=== PATIENT | male | born 1955 | race Caucasian/White ===

== ENCOUNTER 2020-09-24 08:16 | Outpatient (CLI) | payer MEDICARE, OTHER, SELFPAY ==
--- NOTE | ~2020-09-24 | CT_ITS ---
EXAMINATION: CT abdomen wo con DATE: 09/24/2020 08:45 INDICATION: Right upper quadrant abdominal pain for 3 weeks. Abnormal laboratory results. TECHNIQUE: Computed tomography (CT) of the abdomen and pelvis was performed without intravenous contr ast. Automated exposure control and iterative reconstruction technique were employed. Exam dose: 957 .10 mGy-cm total exam DLP. COMPARISON: 12/15/2016 CT abdomen pelvis FINDINGS: Minimal left lower lobe infiltrate or atelectasis. Heart size is within normal range. No pericardial or pleural effusion. Small sliding hiatal hernia. Status post cholecystectomy. Calcified hepatic and splenic granulomas consistent with old granulomatous disease. No hepatic, splenic, pancreatic, and adrenal or renal space-occupying mass lesion is detected. Several punctate nonobstructing right renal calculi are suggested. Nonobstructing 2.5 mm and approximately 7 mm lower pole left renal calculi. No hydroureteronephrosis. Normal caliber of the abdominal aorta. No intraperitoneal or retroperitoneal mass lesion or adenopath y. Normal appendix. There is diverticulosis of the colon; no CT evidence of diverticulitis is detected. Right anterior abdominal wall mesh repair. Degenerative changes of the thoracic and lumbar spine with particularly severe degenerative disc dise ase at L1-2, L3-4, L4-5 and L5-S1. IMPRESSION: Minimal left lower lobe infiltrate or atelectasis Small sliding hiatal hernia Status post cholecystectomy Nonobstructive mild bilateral nephrolithiasis Diverticulosis of the colon Reviewed, dictated and finalized at Location A. Reviewed, dictated and finalized at location A.
== END 2020-09-24 08:17 | disposition home or self-care (01) ==
PROVIDERS: PCP Internal Medicine; Visit Provider Internal Medicine
DX: K57.30 Diverticulosis of large intestine without perforation or abscess without bleeding (principal); N20.0 Calculus of kidney; K44.9 Diaphragmatic hernia without obstruction or gangrene; Z90.49 Acquired absence of other specified parts of digestive tract; R91.8 Other nonspecific abnormal finding of lung field
CPT/HCPCS: 74150

== ENCOUNTER → 2020-09-27 14:25 | Outpatient (CLI) | payer MEDICARE, OTHER, SELFPAY ==
--- NOTE | ~2020-09-27 | XR_ITS ---
XR abdomen/kub 1V 09/27/2020 14:40 Indication: Renal stones. Procedure: KUB Comparison: Comparison to multiple prior studies sequentially, with oldest reviewed study dated 10/30. Findings: Bowel gas pattern is nonobstructive. Moderate colonic fecal loading. There is left renal st one. There are coils in the right abdomen, likely from previous hernia repair. There are cholecystect roberto clips. Advanced spondylosis of the lumbar spine with dextroscoliosis. Impression: 1: Left nephrolithiasis. Reviewed, dictated and finalized at location A. Impression: 1: Left nephrolithiasis.
== END ==
PROVIDERS: PCP Internal Medicine; Visit Provider Nurse Practitioner Adult Health
DX: N20.0 Calculus of kidney (principal)
CPT/HCPCS: 74018

== ENCOUNTER 2020-10-02 10:05 | Outpatient (CLI) | payer MEDICARE, OTHER, SELFPAY ==
--- NOTE | 2020-10-02 10:09 | ECG_ITS ---
Measurements Intervals [place] Rate: 70 P: 8 CA: 170 QRS: 42 QRSD: 110 T: 37 QT: 357 QTc: 387 Interpretive Statements SINUS RHYTHM WITH SINUS ARRHYTHMIA BORDERLINE R WAVE PROGRESSION, ANTERIOR LEADS MINIMAL Q WAVES- INFERIOR LEADS BORDERLINE ECG Electronically Signed On 10-02-2020 12:18:39 CORNER FORMER by Martin Harper D.O.
[2020-10-02 10:58] LABS: INR 0.9; Prothrombin Time 12.9 Seconds (11.1-14.7)
[2020-10-02 10:59] LABS: Partial Thromboplastin Time 25.7 SECONDS (22.3-36.8)
== END 2020-10-02 10:06 | disposition home or self-care (01) ==
LOC: ANHSURGERY 10:09
PROVIDERS: PCP Internal Medicine; Visit Provider Urology
DX: N20.0 Calculus of kidney (principal); I10 Essential (primary) hypertension; Z01.818 Encounter for other preprocedural examination; R94.31 Abnormal electrocardiogram [ECG] [EKG]
CPT/HCPCS: 36415; 85610; 85730; 93005

== ENCOUNTER 2020-10-03 01:55 | Outpatient (CLI) | payer MEDICARE, OTHER, SELFPAY ==
[2020-10-03 22:35] LABS: SARS-CoV-2 RNA PCR Negative
== END 2020-10-03 01:56 | disposition home or self-care (01) ==
LOC: ANHCOVIDDT 01:56
PROVIDERS: PCP Internal Medicine; Visit Provider Urology
DX: Z01.812 Encounter for preprocedural laboratory examination (principal); Z20.828 Contact with and (suspected) exposure to other viral communicable diseases
CPT/HCPCS: 87635; C9803; U0003

== ENCOUNTER 2020-10-05 03:01 | Day surgery (SDC) | payer MEDICARE, OTHER, SELFPAY ==
[2020-10-01 11:04] VITALS: BMI 36.3
--- NOTE | 2020-10-04 12:38 | WPDANESEPPF ---
Anes - Initial Pre Proc Eval Procedure: Operation Date: 10/05/20 10:30 Proposed Procedures p Left Renal Extracorporeal Shock Wave Lithotripsy - Van Vizcaino MD Date/Time: 10/04/20 12:38 Surgeon: Van Vizcaino MD Pre Op Diagnosis: Left Renal Stone Patient Data Age: 64 Gender: M Height: 1.71 m Weight: 107.05 kg Allergies Allergy/AdvReac Type Severity Reaction Status Date / Time cat dander Allergy Unknown ITCHING/WATERY Verified 10/05/20 08:51 EYES mold Allergy Unknown ITCHING/WATERY Verified 10/05/20 08:51 EYES, ASTHMA SYMPTOMS Home Medications Medication Instructions Recorded Confirmed Type adalimumab [Humira] 40 mg SUBCUT WEEKLY 10/11/19 10/01/20 History atenolol 25 mg PO DAILY 10/11/19 10/01/20 History atorvastatin 40 mg PO DAILY 10/11/19 10/01/20 History cyclobenzaprine 10 mg PO HS PRN 10/11/19 10/01/20 History aspirin 81 mg tablet,delayed 81 mg PO DAILY 10/19/19 10/01/20 History release fluticasone furoate 27.5 1 spray NASAL DAILY 10/19/19 10/01/20 History mcg/actuation nasal spray,suspension albuterol sulfate 90 mcg/actuation 1 puff INHALATION Q4H PRN 04/17/20 10/01/20 History aerosol inhaler insulin glargine U-300 conc 300 20 unit SUB-Q DAILY #6 ml 04/19/20 10/01/20 Rx unit/mL (3 mL) subcutaneous pen dutasteride 0.5 mg capsule 0.5 mg PO DAILY #90 cap 06/08/20 10/01/20 Rx metformin 1,000 mg tablet 1,000 mg PO BID #180 tablet 06/08/20 10/01/20 Rx pantoprazole 40 mg tablet,delayed 40 mg PO BID #180 tablet 07/02/20 10/01/20 Rx release tramadol 50 mg tablet 50 mg PO Q6H PRN #60 tablet 07/20/20 10/01/20 Rx blood sugar diagnostic #300 each 08/01/20 Rx lancets 33 gauge #300 each 08/01/20 Rx quinapril 40 mg tablet 40 mg PO DAILY #90 tablet 08/10/20 10/01/20 Rx semaglutide 7 mg tablet 7 mg PO DAILY #90 tablet 09/12/20 10/01/20 Rx pen needle, diabetic 31 gauge x #300 each 09/17/20 Rx 04/14 cholecalciferol (vitamin D3) 125 mcg PO DAILY 10/01/20 10/01/20 History [Vitamin D3] dapagliflozin [Farxiga] 10 mg PO DAILY 10/01/20 10/01/20 History fluticasone furoate-vilanterol 1 inh INHALATION DAILY 10/01/20 10/01/20 History [Breo Ellipta] folic acid 1 mg PO DAILY 10/01/20 10/01/20 History insulin lispro [Humalog KwikPen 15 unit SUBCUT TIDWM 10/01/20 10/01/20 History Insulin] tamsulosin 0.4 mg PO DAILY 10/01/20 10/01/20 History zinc 50 mg PO DAILY 10/01/20 10/01/20 History hydrochlorothiazide 12.5 mg capsule See Rx Instructions .ROUTE 10/04/20 Rx .COMPLEX #90 cap Patient hx anesthesia problems: none Family hx anesthesia problems: none PMFSH Past Medical History Medical History (Updated 10/04/20 @ 12:39 by Akbar Fierro MD) Asthma BPH (benign prostatic hyperplasia) CAD (coronary artery disease) Diabetes Dyslipidemia associated with type 2 diabetes mellitus Elevated LFTs Essential hypertension GERD (gastroesophageal reflux disease) Hyperlipidemia, unspecified Hypertension Obesity Osteoarthritis Psoriatic arthritis Type 2 diabetes mellitus without complication, without long-term current use of insulin Surgical History Surgical History H/O cardiac catheterization H/O inguinal hernia repair History of cholecystectomy History of facial fracture repair 1976 History of heart artery stent Status post club foot correction at x2 Family History Family History Father Hypertension, Onset Age: 80 Cerebrovascular accident, Onset Age: 80 Mother Family history of Alzheimer's disease, Onset Age: 92 Sibling Acute myocardial infarction Social History Social History Smoking status: Never smoker Alcohol intake: never Substance use: never Spiritual care concerns: No Anes - Eval Final PreProcedure Day of Procedure
[2020-10-05] VITALS (7 sets, daily range): BP systolic 111–144; BP diastolic 70–76; PULSE 53–64; RESP 10–18; TEMP 36.2–36.4; O2SAT 97–100
--- NOTE | ~2020-10-05 | XR_ITS ---
EXAMINATION: XR abdomen/kub 1V INDICATION: Nephrolithiasis TECHNIQUE: Supine views of the abdomen were obtained on 2 radiographs. COMPARISON: 09/27/2020, 09/24/2020 FINDINGS: Bowel contents project over the kidneys limiting sensitivity for renal stones. A 7 mm stone projects in the left kidney lower pole. There is also a 2 mm stone projecting in the left kidney low er pole. A moderate volume of colonic stool is present. There is severe lumbar spondylosis. There is mild osteoarthritis of the hips. Calcified atherosclerosis is noted. There are changes of mesh ventra l hernia repair in the right abdomen. Cholecystectomy clips are noted. IMPRESSION: 1. Left nephrolithiasis. Reviewed, dictated and finalized at location A. INUOUS PILLOWCASE CUTTER IMPRESSION: 1. Left nephrolithiasis.
--- NOTE | 2020-10-05 06:33 | WPDHPUPDATE1 ---
History and Physical Update Update Date/Time: 10/05/20 06:33 History and Physical has been reviewed, including an updated exam of the patient. There are NO changes in the patient's condition. Risks, benefits, and alternatives have been discussed and questions answered. Patient agrees to proceed with procedure.
[2020-10-05] MEDS: LACTATED RINGERS 1,000 ML 30 ML IV CONT (09:15)
[2020-10-05 09:46] LABS: Glucose Point of Care 148 (65-105)
[2020-10-05] MEDS: ceFAZolin 2 GM/D5W 50 ML 2 GM/50 ML BAG IVPB (10:33)
--- NOTE | 2020-10-05 10:53 | PM.PROC ---
Procedure Note - Detailed Date of procedure: 10/05/20 Pre-op diagnosis: Left Renal Stone Post-op diagnosis: same Procedure performed: Left ESWL Description of procedure: The patient was brought to the operative suite where he was placed in the supine position on the Dornier lithotripsy table. The focal point of the lithotripter was placed at a 7mm left lower pole renal calculus. A total of 2500 shocks were delivered at a power setting of 4. There appeared to be good fragmentation of the stone. The patient tolerated the procedure well and was taken to the recovery room in good condition. Anesthesia: GLMA Surgeon: Van Vizcaino MD Drains: No Packing: No Pathology: none sent Complications: No immediate complications Condition: stable Disposition: PACU
== END 2020-10-05 12:49 | disposition home or self-care (01) ==
PROVIDERS: PCP Internal Medicine; Visit Provider Urology
PROC: (CPT 50590; principal; 2020-10-05 10:30)
DX: N20.0 Calculus of kidney (principal); I10 Essential (primary) hypertension; E11.9 Type 2 diabetes mellitus without complications; Z79.4 Long term (current) use of insulin; I25.10 Atherosclerotic heart disease of native coronary artery without angina pectoris; Z95.5 Presence of coronary angioplasty implant and graft; E78.5 Hyperlipidemia, unspecified; J45.909 Unspecified asthma, uncomplicated; K21.9 Gastro-esophageal reflux disease without esophagitis; N40.0 Benign prostatic hyperplasia without lower urinary tract symptoms; E66.9 Obesity, unspecified; Z68.35 Body mass index [BMI] 35.0-35.9, adult; Z79.51 Long term (current) use of inhaled steroids; Z79.82 Long term (current) use of aspirin; Z79.899 Other long term (current) drug therapy
CPT/HCPCS: 50590; 74018; J0690; J2405; J2704; J3010; J7120

== ENCOUNTER 2020-11-12 08:30 | Outpatient (CLI) | payer MEDICARE, OTHER, SELFPAY ==
--- NOTE | ~2020-11-12 | US_ITS ---
US abdomen complete EXAMINATION: US Abdomen Complete INDICATION: Abnormal liver function tests. PROCEDURE: Realtime High Resolution abdomen ultrasound. COMPARISON: Ultrasound dated 12/15/2016 FINDINGS: Gallbladder is surgically absent. Common bile duct measures 3 mm. Liver echotexture is increased, consistent with fatty infiltration.. Pancreas within normal limits. Pancreatic tail is obscured by bowel gas. Spleen is unremarkeable. Renal echotexture is within norm al limits bilaterally without hydronephrosis, contour deforming mass. There is an echogenic focus in the lower pole of the left kidney measuring 9 mm, consistent with nonobstructing renal stone. Right k idney measures 10.1 cm. Left kidney measures 10.6 cm. Visualized aspects of the aorta and IVC are within normal limits. Portal vein is patent. No sonograph ic Gill's sign indicated by the technologist. IMPRESSION: 1: Hepatic steatosis. 2: Echogenic 9 mm focus in the lower pole of the left kidney, consistent with a renal stone. No hydro nephrosis. 3: Status post cholecystectomy. Reviewed, dictated and finalized at location A. NG MACHINE SET UP OPERATOR TOOL IMPRESSION: 1: Hepatic steatosis. 2: Echogenic 9 mm focus in the lower pole of the left kidney, consistent with a renal stone. No hydronephrosis. 3: Status post cholecystectomy.
== END 2020-11-12 08:31 | disposition home or self-care (01) ==
PROVIDERS: PCP Internal Medicine; Visit Provider Internal Medicine
DX: R79.89 Other specified abnormal findings of blood chemistry (principal); K76.0 Fatty (change of) liver, not elsewhere classified; Z90.49 Acquired absence of other specified parts of digestive tract
CPT/HCPCS: 76700

== ENCOUNTER → 2021-01-21 09:14 | Outpatient (CLI) | payer MEDICARE, OTHER, SELFPAY ==
--- NOTE | ~2021-01-21 | XR_ITS ---
EXAMINATION: XR chest 2V EXAM DATE: 01/21/2021 09:28 INDICATION: Cough. TECHNIQUE: Frontal and lateral projections of the chest obtained and reviewed. Comparison is made to prior examination from 04/07/2017. FINDINGS: The lungs are clear. There are no pleural effusions. The cardiomediastinal silhouette is within normal limits. There is no pneumothorax suspected. The bones and soft tissues are unremarkab le. There are cholecystectomy clips. IMPRESSION: No acute cardiopulmonary findings. Reviewed, dictated and finalized at location B. LD INSTALLER
== END ==
PROVIDERS: PCP Internal Medicine; Visit Provider Internal Medicine
DX: R05 Cough (principal)
CPT/HCPCS: 71046

== ENCOUNTER → 2021-01-22 08:06 | Outpatient (CLI) | payer MEDICARE, OTHER, SELFPAY ==
[2021-01-22 20:35] LABS: SARS-CoV-2 RNA PCR Negative
== END ==
PROVIDERS: PCP Internal Medicine; Visit Provider Internal Medicine
DX: R05 Cough (principal); Z20.822 Contact with and (suspected) exposure to COVID-19
CPT/HCPCS: C9803; U0003; U0005

== ENCOUNTER 2021-01-31 15:16 | Outpatient (CLI) | payer MEDICARE, OTHER, SELFPAY | END 2021-01-31 15:17 | disposition home or self-care (01) | LOC: ANHCOVIDVC 15:16 | PROVIDERS: PCP Internal Medicine | DX: Z23 Encounter for immunization (principal) | CPT/HCPCS: 0001A; 91300 ==

== ENCOUNTER 2021-02-21 15:14 | Outpatient (CLI) | payer MEDICARE, OTHER, SELFPAY | END 2021-02-21 15:15 | disposition home or self-care (01) | LOC: ANHCOVIDVC 15:14 | PROVIDERS: PCP Internal Medicine | DX: Z23 Encounter for immunization (principal) | CPT/HCPCS: 0002A; 91300 ==

== ENCOUNTER → 2021-04-17 09:17 | Outpatient (CLI) | payer MEDICARE, OTHER, SELFPAY ==
--- NOTE | ~2021-04-17 | XR_ITS ---
EXAMINATION: XR abdomen/kub 1V EXAM DATE: 04/17/2021 09:41 INDICATION: Bilateral renal stones . TECHNIQUE: Frontal projection of the upper abdomen, frontal projection lower abdomen/pelvis for inter pretation. Comparison is made to prior examination from 10/05/2020. FINDINGS: Moderate to large amount of colonic stool is obscuring renal contours. There is right-side d abdominal wall mesh with multiple anchors. There are cholecystectomy clips. Mild to moderate lumbar scoliosis and moderate to severe disc disease. No small bowel dilation. IMPRESSION: Moderate to large amount of colonic stool. Reviewed, dictated and finalized at location A.
== END ==
PROVIDERS: PCP Internal Medicine; Visit Provider Urology
DX: N20.0 Calculus of kidney (principal)
CPT/HCPCS: 74018

== ENCOUNTER → 2021-04-24 07:44 | Outpatient (CLI) | payer MEDICARE, OTHER, SELFPAY ==
--- NOTE | ~2021-04-24 | XR_ITS ---
EXAMINATION: XR hip BI 2V w AP pelvis DATE: 04/24/2021 08:05 INDICATION: Low back and bilateral hip pain TECHNIQUE: AP view the pelvis and two views of each hip were obtained. COMPARISON: 04/17/2021 FINDINGS: There is mild osteoarthritis of the hips. Bone alignment is normal. There is no fracture. S evere spondylosis is present in the visualized lumbar spine. Calcified atherosclerosis. IMPRESSION: 1. Mild osteoarthritis of the hips. Reviewed, dictated and finalized at location A.
== END ==
PROVIDERS: PCP Internal Medicine; Visit Provider Internal Medicine
DX: M54.5 Low back pain (principal); M16.0 Bilateral primary osteoarthritis of hip
CPT/HCPCS: 73521

== ENCOUNTER → 2022-01-13 11:10 | Outpatient (CLI) | payer MEDICARE, OTHER, SELFPAY ==
--- NOTE | ~2022-01-13 | XR_ITS ---
EXAMINATION: XR shoulder RT min 2V DATE: 01/13/2022 11:29 INDICATION: Pain in unspecified shoulder. TECHNIQUE: 4 views of right shoulder were obtained. COMPARISON: None. FINDINGS: Bone alignment is normal. No fracture. There is mild osteoarthritis of glenohumeral joint a nd moderate osteoarthritis of acromioclavicular joint. IMPRESSION: 1. Polyarticular osteoarthritis. Reviewed, dictated and finalized at location A. ACTOR
== END ==
PROVIDERS: PCP Internal Medicine; Visit Provider Internal Medicine
DX: M19.011 Primary osteoarthritis, right shoulder (principal)
CPT/HCPCS: 73030

== ENCOUNTER 2022-04-14 10:41 | Outpatient (CLI) | payer MEDICARE, OTHER, SELFPAY ==
--- NOTE | ~2022-04-14 | MR_ITS ---
EXAMINATION: MR shoulder RT wo con DATE: 04/14/2022 11:33 INDICATION: Complete rotator cuff tear at the right shoulder with right shoulder pain and decreased r hoa of motion TECHNIQUE: Magnetic resonance imaging (MRI) of the right shoulder was performed without intravenous c ontrast. Sequences included axial PD-weighted FS FSE, coronal oblique PD-weighted FS FSE, coronal obl ique T2-weighted FS FSE, sagittal PD-weighted FS FSE, and sagittal T1-weighted SE. COMPARISON: None. FINDINGS: Coracoacromial arch: The acromion undersurface is curved in morphology (type II). Small anterior subacromial spur at the a cromial insertion of the otherwise normal coracoacromial ligament. Mild to moderate acromioclavicular osteoarthritis. Rotator cuff: Mild to moderate supraspinatus tendinopathy with complete full-thickness tear along the critical zone of the tendon approximately 1-1.5 cm from the superior facet footplate. The medial tear margin is re tracted 2.2 cm medially located midway between the level of the apex of the humeral head and the late ral rim of the glenoid. The tear measures approximately 2.5 cm AP along its lateral margin approximat adriano 3 cm AP at the level of the apex of the humeral head. Mild tendinopathy without discrete tear of the more posterior infraspinatus tendon. The teres minor tendon is normal. Mild subscapularis tendino cinthia without discrete tear. There is mild atrophy of the supraspinatus and infraspinatus muscle escalera ies. Biceps tendon, glenoid labrum and glenohumeral cartilage: Full-thickness tear of the intra-articular long head biceps tendon with distal tear margin retracted below the inferior margin of the [id number]. Mild glenohumeral osteoarthritis with partial thickne ss cartilage loss with smooth chondral surface along the cephalad third of the glenoid and small [place] inal osteophytes along the anterosuperior rim of the glenoid. Additional mild partial thickness carti jose m loss along the inferomedial aspect of the humeral head. There appears be a partial-thickness cho ndral fissuring extending across the caudal third of the glenoid. Mild amorphous increased signal at the inferior, posterior and superior glenoid labrum likely related to degeneration without a well-def ined linear tear. Fluid: Small glenohumeral joint effusion which extends to the full-thickness rotator cuff tear to communicat e with a small amount of fluid in the subacromial/subdeltoid bursa. No loose osteochondral bodies. Bones: Normal marrow signal with no edema, fracture or pathologic marrow replacing process. IMPRESSION: 1. Mild glenohumeral osteoarthritis with degeneration of the superior, posterior and inferior glenoid labrum. 2. Mild to moderate supraspinatus tendinopathy with full-thickness tear at the critical zone of the t endon. 3. Complete tear and distal retraction of the intra-articular long head biceps tendon. 4. Mild to moderate acromioclavicular osteoarthritis. Reviewed, dictated and finalized at location A. IMPRESSION: 1. Mild glenohumeral osteoarthritis with degeneration of the superior, posterio r and inferior glenoid labrum. 2. Mild to moderate supraspinatus tendinopathy with full-thickness tear at the critical zone of the tendon. 3. Complete tear and distal retraction of the intra-articular long head biceps tendon. 4. Mild to moderate acromioclavicular osteoarthritis.
== END 2022-04-14 10:42 | disposition home or self-care (01) ==
PROVIDERS: PCP Internal Medicine; Visit Provider Physician Assistant Surgical
DX: M75.121 Complete rotator cuff tear or rupture of right shoulder, not specified as traumatic (principal); M19.011 Primary osteoarthritis, right shoulder; M75.101 Unspecified rotator cuff tear or rupture of right shoulder, not specified as traumatic
CPT/HCPCS: 73221

== ENCOUNTER → 2022-05-14 14:48 | Outpatient (CLI) | payer MEDICARE, OTHER, SELFPAY ==
--- NOTE | ~2022-05-14 | XR_ITS ---
EXAM: XR abdomen/kub 1V DATE: 05/14/2022 15:25 HISTORY: Bilateral renal stones . COMPARISON: 04/17/2021. FINDINGS: Clear lung bases. Normal bowel gas pattern. No organomegaly. No abnormal abdominal calcifi cation. Cholecystectomy clips. Right upper abdominal hernia mesh anchors. Vascular calcifications. IMPRESSION: No radiographic evidence of urolithiasis. Reviewed, dictated and finalized at location K.
== END ==
PROVIDERS: PCP Internal Medicine; Visit Provider Urology
DX: N20.0 Calculus of kidney (principal)
CPT/HCPCS: 74018

== ENCOUNTER 2022-11-05 10:02 | Outpatient (CLI) | payer MEDICARE, OTHER, SELFPAY ==
--- NOTE | 2022-11-05 10:49 | ECG_ITS ---
Measurements Intervals [place] Rate: 57 P: 8 [place]: 167 QRS: 19 QRSD: 94 T: 24 QT: 397 QTc: 388 Interpretive Statements SINUS BRADYCARDIA POSSIBLE INFERIOR MYOCARDIAL INFARCTION [30 ms Q WAVE IN II/aVF], PROBABLY OLD COMPARED TO ECG 10/02/2020 10:45:08 SINUS BRADYCARDIA NOW PRESENT Electronically Signed On 11-05-2022 15:08:53 CYBER CRIME INVESTIGATOR by Rommel Mendez M.D.
[2022-11-05 11:13] LABS: Basophils Absolute Auto 0.1 K/mm3 (0.0-0.1); Eosinophils Absolute Auto 0.3 K/mm3 (0-0.3); Eosinophils Percent Auto 4.8 % (0-4.4); Hematocrit 45.2 % (42.0-52.0); Hemoglobin 14.9 g/dL (14.0-18.0); Immature Granulocyte Absolute 0.03 K/mm3 (0.00-0.031); Immature Granulocyte Percent A 0.4 % (0-0.5); Lymphocytes Absolute Auto 1.69 K/mm3 (0.9-3.2); Mean Corpuscular Volume 90.9 fl (80-100); Mean Platelet Volume 10.3 fl (7.4-10.4); Monocytes Absolute Auto 0.7 K/mm3 (0.1-0.6); Monocytes Percent Auto 10.4 % (2.6-8.5); Neutrophils Absolute Auto 4.2 K/mm3 (1.3-6.7); Neutrophils Percent Auto 59.4 % (45.5-73.1); Platelet Count Result 200 k/mm3 (150-375); Red Blood Count 4.97 M/mm3 (4.6-6.20); Red Cell Distribution Width 14.6 % (11.5-14.5); White Blood Count 7.1 K/mm3 (4.5-10.0)
[2022-11-05 11:21] LABS: Anion Gap 9 mmol/L (8-16); Blood Urea Nitrogen 36 mg/dL (9-20); Calcium 9.3 mg/dL (8.4-10.2); Carbon Dioxide 25 mmol/L (22-30); Chloride 101 mmol/L (98-107); Estimated Glomerular Filt Rate 60; Glucose 113 mg/dL (65-110); Potassium 4.4 mmol/L (3.4-5.0); Sodium 135 mmol/L (137-145)
== END 2022-11-05 10:03 | disposition home or self-care (01) ==
PROVIDERS: Anesthesiology; PCP Physician Assistant; Visit Provider Orthopaedic Surgery
DX: M75.121 Complete rotator cuff tear or rupture of right shoulder, not specified as traumatic (principal); Z01.818 Encounter for other preprocedural examination; R00.1 Bradycardia, unspecified
CPT/HCPCS: 36415; 80048; 85025; 87081; 93005

== ENCOUNTER 2022-12-15 01:19 | Day surgery (SDC) | payer MEDICARE, OTHER, SELFPAY ==
--- NOTE | 2022-11-05 09:33 | PC.NURSE ---
PRE-OP INSTRUCTIONS, PLEASE READ CAREFULLY Report to the Outpatient Waiting Room, entrance under the green pavilion located off [facility], at time _0600_ on date _12/04/22_. Planned Procedure Time: _0730_. PACK A SMALL OVERNIGHT BAG AND LEAVE IN THE CAR Time changes happen often and if your time is changed the preop area will call you the afternoon before. - You and your visitor will be asked to self-screen and do not enter if you have any COVID symptoms. - Only one visitor is requested with a max of two and NO children visitors are allowed at this time. - The patient visitor may be requested to leave or wait in car when not with patient due to distancing restrictions. - A mask is optional within the hospital. -VISITING HOURS 8AM-8PM Patients may have clear liquids (water, carbonated beverages, clear teas, apple juice) until 3 hours prior to surgery (0430 AM) with a maximum of 20 ounces. - No food from midnight until time of surgery Take the following medications with a SIP of water the morning of surgery: _ATENOLOL, BREO INHALER, NASAL SPAY, - FLEXERIL, TRAMADOL IF NEEDED_ Medications to discontinue - _ASPIRIN, HUMIRA PER DR. MAE'S INSTRUCTIONS, Date to take last dose__11/27/22__ Please no deodorant, or body powder the day of surgery. No jewelry (including any body piercings) or valuables the day of surgery, leave them at home. Please take a shower or bath the night before, or the morning of, surgery with an antibacterial soap. Wear comfortable, loose fitting clothing. - Jewelry must be removed prior to entering the operating room. Rings and piercings that are not removed may be cut off. - The hospital will not accept responsibility for valuables. - Please leave all valuables, including medications, at home the day of surgery. If you are going home after surgery, a licensed delivery driver assistant must drive you home. - NO public transportation without another adult if you receive anesthesia. - We recommend that an adult stay with you for 24 hours following discharge. - We also recommend that you do not drive, make important decision, drink alcoholic beverages, or take any drugs that were not prescribed by your health care provider for at least 24 hours after your discharge time. Follow any additional instructions given to you from your surgeon. If you or anyone in your household have experienced Covid symptoms in the past week, please notify your surgeon or the nurse liaison at the phone number below for possible testing. Instructions given to _PATIENT_and asked if any additional questions and then verbalized understanding. Patient advised to call surgeon office or pre surgery nurse liaison [phone] if any additional questions.
[2022-11-05 10:26] VITALS: BMI 32.1
--- NOTE | 2022-12-03 12:50 | WPDANESEPPF ---
Anes - Initial Pre Proc Eval Procedure: Operation Date: 12/04/22 07:30 Proposed Procedures p Right Reverse Total Shoulder Arthroplasty - King Gabriel MD Date/Time: 12/03/22 12:50 Surgeon: King Gabriel MD Pre Op Diagnosis: complete right rotator cuff tear Patient Data Age: 67 Gender: M Height: 1.7 m Weight: 93.1 kg Allergies Allergy/AdvReac Type Severity Reaction Status Date / Time cat dander Allergy Unknown ITCHING/WATERY Verified 11/05/22 12:20 EYES mold Allergy Unknown ITCHING/WATERY Verified 11/05/22 12:20 EYES, ASTHMA SYMPTOMS Home Medications Medication Instructions Recorded Confirmed Type atenolol 25 mg tablet 25 mg PO DAILY 10/11/19 11/05/22 History atorvastatin 40 mg tablet 40 mg PO DAILY 10/11/19 11/05/22 History aspirin 81 mg tablet,delayed 81 mg PO DAILY 10/19/19 11/05/22 History release (Adult Aspirin Regimen) fluticasone furoate 27.5 1 spray intranasal DAILY 10/19/19 11/05/22 History mcg/actuation nasal spray,suspension cholecalciferol (vitamin D3) 125 125 mcg PO DAILY 10/01/20 11/05/22 History mcg (5,000 unit) tablet (Vitamin D3) zinc 50 mg tablet 50 mg PO DAILY 10/01/20 11/05/22 History blood sugar diagnostic See Rx Instructions .Route 12/13/21 11/05/22 Rx .COMPLEX #400 ea cyclobenzaprine 10 mg tablet 10 mg PO HS PRN Spasms #30 tabs 06/18/22 11/05/22 Rx insulin lispro 100 unit/mL 5 unit (0.05 mL) subcut TID #15 mL 06/18/22 11/05/22 Rx subcutaneous pen (Humalog KwikPen (U-100) Insulin) tramadol 50 mg tablet 50 mg PO Q6H PRN pain #60 tabs 06/19/22 11/05/22 Rx allopurinol 300 mg tablet 150 mg PO DAILY 07/01/22 11/05/22 History finasteride 5 mg tablet 5 mg PO DAILY 07/01/22 11/05/22 History magnesium 200 mg tablet 400 mg PO DAILY 07/01/22 11/05/22 History Breo Ellipta 100 mcg-25 mcg/dose See Rx Instructions .Route 07/14/22 11/05/22 Rx powder for inhalation (fluticasone .COMPLEX #60 ea furoate-vilanterol) dutasteride 0.5 mg capsule 0.5 mg PO DAILY #90 caps 07/28/22 11/05/22 Rx empagliflozin 10 mg tablet 10 mg PO DAILY #90 tabs 07/28/22 11/05/22 Rx (Jardiance) insulin glargine U-300 conc 300 40 unit (0.1333 mL) subcut DAILY 09/11/22 11/05/22 Rx unit/mL (3 mL) subcutaneous pen #12 mL (Toujeo Max U-300 SoloStar) pen needle, diabetic 31 gauge x #300 ea 10/13/22 11/05/22 Rx 5/16 (BD Ultra-Fine Short Pen Needle) semaglutide 14 mg tablet (Rybelsus) 14 mg PO DAILY #30 tabs 11/11/22 Rx metformin 1,000 mg tablet 1,000 mg PO BID #180 tabs 11/12/22 Rx lisinopril 20 1 tablet PO DAILY #90 tabs 11/14/22 Rx mg-hydrochlorothiazide 12.5 mg tablet blood sugar diagnostic (OneTouch #200 ea 12/02/22 Rx Ultra Test strips) blood sugar diagnostic (OneTouch 12/02/22 History Verio test strips) lancets 33 gauge (OneTouch Delica #200 ea 12/02/22 Rx Lancets) pantoprazole 40 mg tablet,delayed 40 mg PO BID #180 tabs 12/02/22 Rx release ECG: Date of Service: 11/05/22 Procedure(s): CA 12 lead EKG Accession Number(s): [id number] cc: ~ ? Measurements Intervals? [place]? Rate: ? 57 ? P:? 8 TN: ? 167? QRS:? 19 QRSD: ? 94 ? T:? 24 QT: ? 397? QTc:? 388? Interpretive Statements SINUS BRADYCARDIA POSSIBLE INFERIOR MYOCARDIAL INFARCTION [30 ms Q WAVE IN II/aVF], PROBABLY OLD COMPARED TO ECG 10/02/2020 10:45:08 SINUS BRADYCARDIA NOW PRESENT Electronically Signed On 11-05-2022 15:08:53 OPERATOR CAVITY PUMP by Rommel Mendez M.D. Results Review: All pre-operative results and documents have been reviewed as part of the pre-operative evaluation. [facility] Past Medical History Medical History (Updated 12/03/22 @ 12:51 by Akbar Fierro MD) A
--- NOTE | 2022-12-03 12:54 | WPDANESPNB ---
Anes - Peripheral Nerve Block Date/Time: 12/03/22 12:54 I have discussed with the patient/family/POA the placement of a peripheral nerve block for post-operative pain management, including associated risks, benefits, complications, and side effects. Alternative methods of post-operative analgesia were detailed. Questions were solicited and answers provided to the satisfaction of the patient/family/POA. Time-Out: A pre-procedural Time-Out was completed immediately before starting the procedure and confirmed: Patient Identification, Site, Procedure, Patient Position and the Availability of Requisite Equipment. Clinical Indications: Acute post-operative pain management requested by the operative surgeon. Nerve Block Insertion Note Needle: 22 gauge, stimulating, insulated echogenic needle.
[2022-12-11 10:47] VITALS: BMI 32.1
--- NOTE | 2022-12-11 10:54 | PC.NURSE ---
Report to the Outpatient Waiting Room, entrance under the green pavilion located off [facility], at time ___0600____ on date __12/15/21 . Planned Procedure Time: _0730_. Time changes happen often and if your time is changed the preop area will call you the afternoon before. - You and your visitor will be asked to self-screen and do not enter if you have any COVID symptoms. - Only one visitor is requested with a max of two and NO children visitors are allowed at this time. - The patient visitor may be requested to leave or wait in car when not with patient due to distancing restrictions. - A mask is optional within the hospital. Patients may have clear liquids (water, carbonated beverages, clear teas, apple juice) until 3 hours prior to surgery with a maximum of 20 ounces. - No food from midnight until time of surgery - Infants may have breast milk until 4 hours before surgery, formula 6 hours prior to surgery. - Children will be allowed to drink immediately following surgery. If applicable, please bring a bottle or sippy cup to assist with drinking. Juice, water, soda, and popsicles are readily available. For infants on formula, please bring formula the day of surgery. Pacifiers are allowed. Take the following medications with a SIP of water the morning of surgery: _ATENOLOL, BREO INHALER, NASAL SPAY, - FLEXERIL, TRAMADOL IF NEEDED_ Medications to discontinue per physician _STATES LAST DOSE ASPIRIN 11/27/22 AND LAST DOSE OF HUMIRA 11/28/22__ Date to take last dose Please no make-up, nail croatian, hairspray, perfume, deodorant, or body powder the day of surgery. No jewelry (including any body piercings) or valuables the day of surgery, leave them at home. Please take a shower or bath the night before, or the morning of, surgery with an antibacterial soap. Wear comfortable, loose fitting clothing. Children are encouraged to wear pajamas. - Jewelry must be removed prior to entering the operating room. Rings and piercings that are not removed may be cut off. - The hospital will not accept responsibility for valuables. - Please leave all valuables, including medications, at home the day of surgery. If you are going home after surgery, a licensed route delivery driver must drive you home. - NO public transportation without another adult if you receive anesthesia. - We recommend that an adult stay with you for 24 hours following discharge. - We also recommend that you do not drive, make important decision, drink alcoholic beverages, or take any drugs that were not prescribed by your health care provider for at least 24 hours after your discharge time. For Pediatric surgeries, we recommend two adults accompany the child home. Follow any additional instructions given to you from your surgeon. If you or anyone in your household have experienced Covid symptoms in the past week, please notify your surgeon or the nurse liaison at the phone number below for possible testing. Telephone instructions given to PATIENT and asked if any additional questions and then verbalized understanding. Patient advised to call surgeon office or pre surgery nurse liaison [phone] if any additional questions.
[2022-12-15] VITALS (13 sets, daily range): BP systolic 101–144; BP diastolic 54–97; PULSE 51–65; RESP 14–20; TEMP 36.1–36.8; O2SAT 92–99
--- NOTE | ~2022-12-15 | XR_ITS ---
EXAMINATION: XR shoulder RT min 2V DATE: 12/15/2022 10:31 INDICATION: Right shoulder arthroplasty TECHNIQUE: 2 views right shoulder FINDINGS: There is a right total shoulder arthroplasty in expected position. Subcutaneous gas with s oft tissue swelling are consistent with recent surgery. IMPRESSION: 1. Recent right total shoulder arthroplasty. Reviewed, dictated and finalized at location A. SPRING DEVELOPER
--- NOTE | 2022-12-15 06:42 | WPDANESEPPF ---
Anes - Initial Pre Proc Eval Procedure: Operation Date: 12/15/22 07:30 Proposed Procedures p Right Reverse Total Shoulder Arthroplasty - King Gabriel MD Date/Time: 12/15/22 06:42 Surgeon: King Gabriel MD Pre Op Diagnosis: complete right rotator cuff tear Patient Data Age: 67 Gender: M Height: 1.7 m Weight: 93.1 kg Allergies Allergy/AdvReac Type Severity Reaction Status Date / Time cat dander Allergy Unknown ITCHING/WATERY Verified 12/15/22 06:25 EYES mold Allergy Unknown ITCHING/WATERY Verified 12/15/22 06:25 EYES, ASTHMA SYMPTOMS Home Medications Medication Instructions Recorded Confirmed Type atenolol 25 mg tablet 25 mg PO DAILY 10/11/19 12/15/22 History atorvastatin 40 mg tablet 40 mg PO DAILY 10/11/19 12/15/22 History aspirin 81 mg tablet,delayed 81 mg PO DAILY 10/19/19 12/15/22 History release (Adult Aspirin Regimen) fluticasone furoate 27.5 1 spray intranasal DAILY 10/19/19 12/15/22 History mcg/actuation nasal spray,suspension cholecalciferol (vitamin D3) 125 125 mcg PO DAILY 10/01/20 12/15/22 History mcg (5,000 unit) tablet (Vitamin D3) zinc 50 mg tablet 50 mg PO DAILY 10/01/20 12/15/22 History blood sugar diagnostic See Rx Instructions .Route 12/13/21 12/11/22 Rx .COMPLEX #400 ea cyclobenzaprine 10 mg tablet 10 mg PO HS PRN Spasms #30 tabs 06/18/22 12/15/22 Rx insulin lispro 100 unit/mL 5 unit (0.05 mL) subcut TID #15 mL 06/18/22 12/15/22 Rx subcutaneous pen (Humalog KwikPen (U-100) Insulin) allopurinol 300 mg tablet 150 mg PO DAILY 07/01/22 12/15/22 History finasteride 5 mg tablet 5 mg PO DAILY 07/01/22 12/15/22 History magnesium 200 mg tablet 400 mg PO DAILY 07/01/22 12/15/22 History Breo Ellipta 100 mcg-25 mcg/dose See Rx Instructions .Route 07/14/22 12/15/22 Rx powder for inhalation (fluticasone .COMPLEX #60 ea furoate-vilanterol) dutasteride 0.5 mg capsule 0.5 mg PO DAILY #90 caps 07/28/22 12/15/22 Rx empagliflozin 10 mg tablet 10 mg PO DAILY #90 tabs 07/28/22 12/15/22 Rx (Jardiance) insulin glargine U-300 conc 300 40 unit (0.1333 mL) subcut DAILY 09/11/22 12/15/22 Rx unit/mL (3 mL) subcutaneous pen #12 mL (Toujeo Max U-300 SoloStar) pen needle, diabetic 31 gauge x #300 ea 10/13/22 12/11/22 Rx 5/16 (BD Ultra-Fine Short Pen Needle) semaglutide 14 mg tablet (Rybelsus) 14 mg PO DAILY #30 tabs 11/11/22 12/15/22 Rx metformin 1,000 mg tablet 1,000 mg PO BID #180 tabs 11/12/22 12/15/22 Rx lisinopril 20 1 tablet PO DAILY #90 tabs 11/14/22 12/15/22 Rx mg-hydrochlorothiazide 12.5 mg tablet blood sugar diagnostic (OneTouch 12/02/22 12/11/22 History Verio test strips) pantoprazole 40 mg tablet,delayed 40 mg PO BID #180 tabs 12/02/22 12/15/22 Rx release blood sugar diagnostic (OneTouch #200 ea 12/04/22 12/11/22 Rx Ultra Test strips) lancets 33 gauge (OneTouch Delica #200 ea 12/04/22 12/11/22 Rx Lancets) tramadol 50 mg tablet 50 mg PO Q6H PRN pain #60 tabs 12/08/22 12/15/22 Rx Humira(CF) Pen 0.5 mg subcut 2XW 12/15/22 12/15/22 History Patient hx anesthesia problems: none Family hx anesthesia problems: none Results Review: All pre-operative results and documents have been reviewed as part of the pre-operative evaluation. [facility] Past Medical History Medical History (Updated 12/03/22 @ 12:51 by Akbar Fierro MD) Asthma BPH (benign prostatic hyperplasia) BPH associated with nocturia CAD (coronary artery disease) COVID-19 vaccine series completed Diabetes Dyslipidemia associated with type 2 diabetes mellitus Elevated LFTs Essential hypertension GERD (gastroesophageal reflux disease) History of stress test 2009 2013 Hyperlipidemia, unspecified Hypertension Obesity Osteoarthritis Psoriatic arthritis Psoriatic arthritis Rotator cuff arthropathy of right shoulder Type 2 diabetes mellitus without complication, without long-term current use of insulin Uric acid kidney stone
[2022-12-15] MEDS: LACTATED RINGERS 1,000 ML 30 ML IV CONT ×2 (06:45→10:11)
[2022-12-15] MEDS: ACETAMINOPHEN 500 MG TABLET 1000 MG PO (06:47)
[2022-12-15 06:52] LABS: Glucose Point of Care 112 mg/dl (65-105)
[2022-12-15] MEDS: TRANEXAMIC ACID 1,000MG/ISO100 1,000 MG/100 ML BAG 200 MG IVPB (07:05)
--- NOTE | 2022-12-15 07:13 | WPDHPUPDATE1 ---
History and Physical Update Update Date/Time: 12/15/22 07:13 History and Physical has been reviewed, including an updated exam of the patient. There are NO changes in the patient's condition. Risks, benefits, and alternatives have been discussed and questions answered. Patient agrees to proceed with procedure.
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
[2022-12-15] MEDS: ceFAZolin 2 GM/D5W 50 ML 2 GM/50 ML BAG IVPB ×3 (07:33→22:50)
--- NOTE | 2022-12-15 07:58 | WPDANESPNB ---
Anes - Peripheral Nerve Block Date/Time: 12/15/22 07:58 I have discussed with the patient/family/POA the placement of a peripheral nerve block for post-operative pain management, including associated risks, benefits, complications, and side effects. Alternative methods of post-operative analgesia were detailed. Questions were solicited and answers provided to the satisfaction of the patient/family/POA. Time-Out: A pre-procedural Time-Out was completed immediately before starting the procedure and confirmed: Patient Identification, Site, Procedure, Patient Position and the Availability of Requisite Equipment. Clinical Indications: Acute post-operative pain management requested by the operative surgeon. Nerve Block Insertion Note Anes-nerve block: interscalene right Patient position: supine Skin prep: chlorhexidine Needle: 22 gauge, stimulating, insulated echogenic needle. Needle length: 50 mm Technique: ultrasound Injectate: bupivacaine 0.5% with epi 5 mcg/ml (30cc- no epi) Observations: tolerated well Complications: none Procedure start time:: 711 Procedure end time:: 714
[2022-12-15] MEDS: VANCOMYCIN HCL 1,000 MG VIAL 1000 MG XX (08:33)
[2022-12-15] MEDS: HYDROGEN PEROXIDE 3% SOLN(*SP) 473 ML BOTTLE 237 ML IRRIGATION (08:35)
[2022-12-15 10:20] LABS: Glucose Point of Care 115 mg/dl (65-105)
--- NOTE | 2022-12-15 11:33 | ADMGEN ---
This patient, Misael Graves, was admitted to [facility]- at 1118. Patient/family oriented to hospital policies and general routines including ID bracelet, bed and alarms, visiting hours, pain management, procedures, bathroom and other care routines, personal items, smoking policy, room service/diet, and visiting hours. Information on how to activate the Rapid Response Team has been discussed. Patient/Family are encouraged to report perceived risks to care and to ask questions if they do not understand what they are told or what they should do.
[2022-12-15] MEDS: SODIUM CHLORIDE 0.9% IV 1,000 ML 125 ML IV CONT (11:49)
--- NOTE | 2022-12-15 12:15 | PM.IMCN ---
Assessment and Plan Assessment and plan (1) Status post reverse total arthroplasty of right shoulder: Code(s): Z96.611 - Presence of right artificial shoulder joint Status: Acute Assessment and Plan: POD 0 Elective surgery performed on 12/15/22 Post op care per ortho Pain medications on board Antiemetics on board DVT per ortho Trend pain (2) Type 2 diabetes mellitus without complication, without long-term current use of insulin: Code(s): E11.9 - Type 2 diabetes mellitus without complications Status: Acute Assessment and Plan: Glucose 115 a1c from 09/16/23 is 5.9 Continue home Jardiance, Glargine U-300 40 units daily, 5 units of lispro at meal times, metformin 1000mg PO BID, Semaglutide 14mg PO daily on hold for now Accu checks AC/HS Hypoglycemia protocol Trend glucose Adjust therapy as indicated (3) Hyperlipidemia, unspecified: Qualifiers: Hyperlipidemia type: unspecified Qualified Code(s): E78.5 - Hyperlipidemia, unspecified Code(s): E78.5 - Hyperlipidemia, unspecified Status: Acute Assessment and Plan: Continue home atorvastatin Lipid panel in the am (4) BPH (benign prostatic hyperplasia): Qualifiers: Lower urinary tract symptom presence: symptoms present Lower urinary tract symptom detail: nocturia Qualified Code(s): N40.1 - Benign prostatic hyperplasia with lower urinary tract symptoms; R35.1 - Nocturia Code(s): N40.0 - Benign prostatic hyperplasia without lower urinary tract symptoms Status: Acute Assessment and Plan: Continue home finasteride Trend urine output Bladder scan PRN if indicated (5) Psoriatic arthritis: Code(s): L40.50 - Arthropathic psoriasis, unspecified Status: Acute Assessment and Plan: Currently on Humira Continue post DC (6) CAD (coronary artery disease): Code(s): I25.10 - Atherosclerotic heart disease of [place] coronary artery without angina pectoris Status: Acute Assessment and Plan: Hx of stent placement Continue aspirin No complaints of chest pain Stable at this time (7) Asthma: Code(s): J45.909 - Unspecified asthma, uncomplicated Status: Acute Assessment and Plan: Continue Breo-Ellipta Trend respiratory system Currently on room air Stable and chronic (8) Essential hypertension: Code(s): I10 - Essential (primary) hypertension Status: Acute Assessment and Plan: BP is 110/54 Continue home atenolol, lisinopril, and HCTZ Trend BP Adjust therapy as indicated Plan Thank you for allowing us to participate, please call with any questions HPI Data of Consult Consult date: 12/15/22 Requesting Physician: King Gabriel MD Primary Care Provider: Nahid Rainey PA-C Consult Narrative Reason for consult: Medical management Narrative: Misael Graves is a 67 year old male with a past medical history of CAD, BPH, diabetes, hyperlipidemia, diabetes who presented for elective arthroplasty of right shoulder with Dr. Gabriel. patient said that he has been experiencing a lot of pain over the last few years. Patient stated that it is just been unbearable and that he was going to have the surgery. He has no other complaints including chest pain, shortness a breath, nausea, vomiting, diarrhea, constipation, sweats, fevers, chills, lightheadedness, dizziness, falls, abdominal pain. Currently patient is experiencing no pain however he did state that he had a nerve block. Educated the patient about ensuring good pain medicine etiquette. Also explained to the patient that he needs to remain active as possible. Currently patient is stable at this time. patient is being admitted to the hospitalist service for medical management Review of Systems Review of Sy
--- NOTE | 2022-12-15 12:15 | P.CONIM_ITS ---
Assessment and Plan Assessment and plan (1) Status post reverse total arthroplasty of right shoulder: Code(s): Z96.611 - Presence of right artificial shoulder joint Status: Acute Assessment and Plan: * POD 0 * Elective surgery performed on 12/15/22 * Post op care per ortho * Pain medications on board * Antiemetics on board * DVT per ortho * Trend pain (2) Type 2 diabetes mellitus without complication, without long-term current use of insulin: Code(s): E11.9 - Type 2 diabetes mellitus without complications Status: Acute Assessment and Plan: * Glucose 115 * a1c from 09/16/23 is 5.9 * Continue home Jardiance, Glargine U-300 40 units daily, 5 units of lispro at meal times, metformin 1000mg PO BID, * Semaglutide 14mg PO daily on hold for now * Accu checks AC/HS * Hypoglycemia protocol * Trend glucose * Adjust therapy as indicated (3) Hyperlipidemia, unspecified: Qualifiers: Hyperlipidemia type: unspecified Qualified Code(s): E78.5 - Hyperlipidemia, unspecified Code(s): E78.5 - Hyperlipidemia, unspecified Status: Acute Assessment and Plan: * Continue home atorvastatin * Lipid panel in the am (4) BPH (benign prostatic hyperplasia): Qualifiers: Lower urinary tract symptom presence: symptoms present Lower urinary tract symptom detail: nocturia Qualified Code(s): N40.1 - Benign prostatic hyperplasia with lower urinary tract symptoms; R35.1 - Nocturia Code(s): N40.0 - Benign prostatic hyperplasia without lower urinary tract symptoms Status: Acute Assessment and Plan: * Continue home finasteride * Trend urine output * Bladder scan PRN if indicated (5) Psoriatic arthritis: Code(s): L40.50 - Arthropathic psoriasis, unspecified Status: Acute Assessment and Plan: * Currently on Humira * Continue post DC (6) CAD (coronary artery disease): Code(s): I25.10 - Atherosclerotic heart disease of [place] coronary artery without angina pectoris Status: Acute Assessment and Plan: * Hx of stent placement * Continue aspirin * No complaints of chest pain * Stable at this time (7) Asthma: Code(s): J45.909 - Unspecified asthma, uncomplicated Status: Acute Assessment and Plan: * Continue Breo-Ellipta * Trend respiratory system * Currently on room air * Stable and chronic (8) Essential hypertension: Code(s): I10 - Essential (primary) hypertension Status: Acute Assessment and Plan: * BP is 110/54 * Continue home atenolol, lisinopril, and HCTZ * Trend BP * Adjust therapy as indicated Plan Thank you for allowing us to participate, please call with any questions HPI Data of Consult Consult date: 12/15/22 Requesting Physician: King Gabriel MD Primary Care Provider: Nahid Rainey PA-C Consult Narrative Reason for consult: Medical management Narrative: Misael Graves is a 67 year old male with a past medical history of CAD, BPH, diabetes, hyperlipidemia, diabetes who presented for elective arthroplasty of right shoulder with Dr. Gabriel. patient said that he has been experiencing a lot of pain over the last few years. Fernando
[2022-12-15 13:13] LABS: Glucose Point of Care 142 mg/dl (65-105)
[2022-12-15] MEDS: INSULIN ASPART (*BKC) 100 UNITS/ML SUB-Q ×2 (13:22→17:37)
--- NOTE | 2022-12-15 13:45 | W.PM.PROC2 ---
Procedure Note - Detailed Date of Procedure 12/15/22 Pre-op Diagnosis Rotator cuff arthropathy right shoulder. Post-op Diagnosis Same Procedure Performed Reverse total shoulder arthroplasty, right shoulder. Surgeon King Gabriel MD Assembler Wet Wash Denise Pena PA-C Anesthesia General and Regional (Interscalene block.) Findings Massive retracted rotator cuff tear. Early degenerative changes. Minimal superior wear of the glenoid. No posterior wear. Excellent bone quality. Subscapularis repaired through bone tunnels. Description of Procedure The patient was given an interscalene block in the preoperative area. Preoperative antibiotics were given. The patient was transferred to the operating room and a general anesthetic was administered. The beach chair position was used at 45 degrees. All bony prominences were padded. The head was carefully stabilized on the [facility] hogshead press operator. A sterile prep and drape was performed in the usual manner with ChloraPrep. A longitudinal incision was created at the anterior shoulder just lateral to the deltopectoral interval. Hydrogen peroxide was placed on the incision and then rinsed after one minute. Careful dissection was performed to expose the interval and protect the cephalic vein. The vein was retracted medially. The upper border of the pectoralis was released. Anterior circumflex vessel branches were suture ligated. The biceps was previously ruptured and scarred. A subscapularis tenotomy was performed. The inferior capsule was released, exposing the humeral head. Osteophytes were removed. Care was taken to stay on bone to protect the axillary nerve. The anatomic head cut was taken with the oscillating saw. The guide pin was placed, central drilling performed, and the broach trial inserted. The neck anteversion and inclination were carefully assessed. The cut protector was placed, and attention was turned to the glenoid. Retractors were placed. Releases were carried out for exposure. The subscapularis was mobilized, the inferior capsule and long head of triceps released, and the superior and middle glenohumeral ligaments released as well. Labral tissue was resected as needed. The sizing template was used to assess the baseplate position low on the glenoid. A guide pin was placed. Minimal reaming was used to accomplish a flat surface without violating the subchondral bone. Version was corrected according to preoperative templating. The boss was drilled, and the real component was impacted into position. Supplemental locking screws were placed centrally, superiorly, and inferiorly. The glenosphere was impacted into the taper. The proximal humerus was reamed for the inset component. The humeral components were trialed. The real humeral stem, tray, and insert were impacted into position. The shoulder was copiously irrigated periodically with pulsatile lavage. The shoulder was reduced and stability confirmed. 1 gram of Vancomycin powder was placed in the joint. The deltopectoral space was reapproximated with number 1 Vicryl. The remaining tissue was closed with 0 Quill and 2-0 Quill running suture and steri-strips. A sterile silver occlusive dressing and shoulder immobilizer were placed. The patient was transferred to the recovery room. Physician ophthalmic medical assistant, Denise Pena PA-C, required for surgery; including patient positioning, draping, tissue retraction, maintaining instrument position, wound closure, and dressing placement. Implants Shoulder Innovations reverse TSA size 1 stem. +0 polyethylene insert. Standard baseplate. 36 +3 mm glenosphere. Estimated Blood Loss -50.0 Drains No Pathology None sent Complications No immediate complications Condition Stable Disposition PACU [facility] Billing Surgery - Charge Forward: Surgery Billing
[2022-12-15] MEDS: oxyCODONE HCL (*CRX) 5 MG TAB IR PO ×2 (15:11→23:25)
[2022-12-15] MEDS: metFORMIN HCL 500 MG TABLET 1000 MG PO (16:38)
[2022-12-15] MEDS: ASPIRIN 81 MG ENTERIC TABLET PO (16:38)
[2022-12-15] MEDS: SENNA/DOCUSATE SODIUM TABLET 2 TAB PO (16:38)
[2022-12-15] MEDS: PANTOPRAZOLE 40 MG TABLET PO (16:38)
[2022-12-15] MEDS: MELOXICAM 7.5 MG TABLET PO (16:38)
[2022-12-15 17:47] LABS: Glucose Point of Care 174 mg/dl (65-105)
[2022-12-15 19:39] LABS: Glucose Point of Care 170 mg/dl (65-105)
[2022-12-15] MEDS: traMADol HCL (*CRX) 50 MG TABLET PO (20:28)
[2022-12-16] MEDS: CYCLOBENZAPRINE HCL 10 MG TABLET PO
[2022-12-16] MEDS: oxyCODONE HCL (*CRX) 5 MG TAB IR PO ×2 (03:35→08:33)
[2022-12-16] MEDS: traMADol HCL (*CRX) 50 MG TABLET PO (05:25)
[2022-12-16 05:32] VITALS: BP 129/66; PULSE 61; RESP 20; TEMP 36.3; O2SAT 98
[2022-12-16] MEDS: ceFAZolin 2 GM/D5W 50 ML 2 GM/50 ML BAG IVPB (06:30)
[2022-12-16 06:57] LABS: Glucose Point of Care 138 mg/dl (65-105)
[2022-12-16] MEDS: INSULIN ASPART (*BKC) 100 UNITS/ML SUB-Q (06:58)
--- NOTE | 2022-12-16 07:20 | PM.DS ---
DS: Admitting Diagnosis Discharge Date 12/16/22 Admitting Diagnosis Massive rotator cuff tear. DS: Discharge Diagnosis Discharge Diagnosis (1) Status post reverse total arthroplasty of right shoulder: Code(s): Z96.611 - Presence of right artificial shoulder joint Status: Acute Assessment and Plan: Postop day 1: Right reverse total shoulder arthroplasty. Patient tolerated procedure well. No complications. Pain manageable with pain medication. We had a lengthy discussion regarding postoperative wound care, limitations, expectations, and exercises. Patient shows good understanding. He has had initial physical therapy and is tolerating it well. DVT prophylaxis: 81 mg baby aspirin b.i.d. for 14 days. Pain medication: Percocet. Antibiotic: Keflex Patient has followup appointment with Dr. Gabriel in 3 weeks. DS: Summary Hospital Course Hospital Course: Patient tolerated procedure well. Has had initial PT and OT. Status at Discharge Functional status at discharge: independent ambulation Overall status at discharge: patient is progressing back to baseline Time Spent with Patient Time attestation: Total time spent providing and/or coordinating discharge services: Exam Narrative: Overweight 67 y.o male. Resting comfortably in bed. Wearing sling. Dressing dry and intact with no drainage. Moderate swelling. Mild ecchymosis. No erythema. No hematoma. Range of motion limited due to pain. Calf nontender. Neurologic status intact. No varicosities. Distal pulses palpable. DS: Data Data Completed and Pending Labs on day of discharge: Labs from last 24 hours 12/16/22 12/15/22 12/15/22 06:46 19:35 17:31 POC Capillary Glucose 138 H 170 H 174 H Blood Type Antibody Screen 12/15/22 12/15/22 12/15/22 13:09 10:18 06:19 POC Capillary Glucose 142 H 115 H Blood Type A Positive Antibody Screen Negative Discharge Plan Discharge Patient Disposition: Home, Self-Care Discharge Instructions: See green instruction sheet Stand Alone Forms: General Discharge Instructions Follow-up/Referrals: Denise Pena PA [Physician Audio Specialist] - Discharge Medications: New aspirin 81 mg tablet,delayed release (DR/EC) 81 mg PO BID 14 Days Qty: 28 0RF meloxicam 15 mg tablet 15 mg PO DAILY Qty: 30 0RF Rx Instructions: Cut in half. Take 1/2 in morning and 1/2 at night. Take with food. Stop if stomach upset. oxycodone-acetaminophen 5-325 mg tablet 1 - 2 tablet PO Q4-6H MDD 6 PRN (Reason: pain) Qty: 30 0RF cephalexin 500 mg capsule 500 mg PO BID 10 Days Qty: 20 0RF Rx Instructions: Take twice a day for 10 days. Continued aspirin [Adult Aspirin Regimen] 81 mg tablet,delayed release (DR/EC) 81 mg PO DAILY Hold Instructions: Resume on 10/08/20. Label Comments: HS fluticasone furoate 27.5 mcg/actuation spray,suspension 1 spray NASAL DAILY finasteride 5 mg tablet 5 mg PO DAILY magnesium 200 mg tablet 400 mg PO DAILY atorvastatin 40 mg Tablet 40 mg PO DAILY atenolol 25 mg Tablet 25 mg PO DAILY zinc 50 mg Tablet 50 mg PO DAILY cholecalciferol (vitamin D3) [Vitamin D3] 125 mcg (5,000 unit) Tablet 125 mcg PO DAILY Humira(CF) Pen 0.5 mg subcut 2XW blood sugar diagnostic Strip See Rx Instructions .ROUTE .COMPLEX Qty: 400 3RF Dose Instruction: USE TO TEST BLOOD SUGAR DAILY Rx Instructions: USE TO TEST BLOOD SUGAR DAILY 4x daily insulin lispro [Humalog KwikPen Insulin] 100 unit/mL insulin pen 5 unit subcut TID Qty: 15 6RF Rx Instructions: 5 units TID before each meal cyclobenzaprine 10 mg tablet 10 mg PO HS PRN (Reason: Spasms) Qty: 30 0RF fluticasone furoate-vilanterol [Breo Ellipta] 100-25 mcg/dose blister with device See Rx Instructions .ROUTE .COMPLEX Qty: 60 5RF Dose Instruction: INHALE 1 PUFF BY
[2022-12-16 08:00] VITALS: BP 100/62; PULSE 57; RESP 18; TEMP 36.6; O2SAT 98
[2022-12-16] MEDS: SENNA/DOCUSATE SODIUM TABLET 2 TAB PO (08:02)
[2022-12-16] MEDS: DUTASTERIDE 0.5 MG CAPSULE PO (08:02)
[2022-12-16] MEDS: CHOLECALCIFEROL 1,000 UNITS TABLET 5000 UNITS PO (08:02)
[2022-12-16] MEDS: EMPAGLIFLOZIN 10 MG TABLET PO (08:02)
[2022-12-16] MEDS: FINASTERIDE 5 MG TABLET PO (08:05)
[2022-12-16] MEDS: allopurinoL 150 MG TABLET PO (08:07)
[2022-12-16] MEDS: metFORMIN HCL 500 MG TABLET 1000 MG PO (08:08)
[2022-12-16] MEDS: MELOXICAM 7.5 MG TABLET PO (08:08)
[2022-12-16] MEDS: ASPIRIN 81 MG ENTERIC TABLET PO (08:08)
[2022-12-16] MEDS: ATORVASTATIN 40 MG TABLET PO (08:24)
[2022-12-16] MEDS: PANTOPRAZOLE 40 MG TABLET PO (08:24)
[2022-12-16 08:40] VITALS: BP 123/65
[2022-12-16] MEDS: INSULIN GLARGINE (*BKC) 100 UNITS/ML 40 UNITS SUB-Q (08:43)
[2022-12-16 08:47] VITALS: PULSE 57
[2022-12-16] MEDS: atenoloL 25 MG TABLET PO (08:47)
[2022-12-16] MEDS: hydroCHLOROthiazide 12.5 MG CAPSULE PO (08:47)
[2022-12-16] MEDS: lisinopriL 20 MG TABLET PO (08:47)
--- NOTE | 2022-12-16 09:00 | P.PNIM_ITS ---
Progress Note: A&P Assessment and Plan (1) Status post reverse total arthroplasty of right shoulder: Code(s): Z96.611 - Presence of right artificial shoulder joint Status: Acute Assessment and Plan: * POD 1 * Elective surgery performed on 12/15/22 * Post op care per ortho * Pain medications on board * Antiemetics on board * DVT per ortho * Trend pain (2) Type 2 diabetes mellitus without complication, without long-term current use of insulin: Code(s): E11.9 - Type 2 diabetes mellitus without complications Status: Acute Assessment and Plan: * Glucose 125 * a1c from 09/16/23 is 5.9 * Continue home Jardiance, Glargine U-300 40 units daily, 5 units of lispro at meal times, metformin 1000mg PO BID, * Semaglutide 14mg PO daily on hold for now * Accu checks AC/HS * Hypoglycemia protocol * Trend glucose * Adjust therapy as indicated (3) Hyperlipidemia, unspecified: Qualifiers: Hyperlipidemia type: unspecified Qualified Code(s): E78.5 - Hyperlipidemia, unspecified Code(s): E78.5 - Hyperlipidemia, unspecified Status: Acute Assessment and Plan: * Continue home atorvastatin * Lipid panel outpatient if indicated (4) BPH (benign prostatic hyperplasia): Qualifiers: Lower urinary tract symptom presence: symptoms present Lower urinary tract symptom detail: nocturia Qualified Code(s): N40.1 - Benign prostatic hyperplasia with lower urinary tract symptoms; R35.1 - Nocturia Code(s): N40.0 - Benign prostatic hyperplasia without lower urinary tract symptoms Status: Acute Assessment and Plan: * Continue home finasteride * Trend urine output * Bladder scan PRN if indicated (5) Psoriatic arthritis: Code(s): L40.50 - Arthropathic psoriasis, unspecified Status: Acute Assessment and Plan: * Currently on Humira * Continue post DC (6) CAD (coronary artery disease): Code(s): I25.10 - Atherosclerotic heart disease of [place] coronary artery without angina pectoris Status: Acute Assessment and Plan: * Hx of stent placement * Continue aspirin * No complaints of chest pain * Stable at this time (7) Asthma: Code(s): J45.909 - Unspecified asthma, uncomplicated Status: Acute Assessment and Plan: * Continue Breo-Ellipta * Trend respiratory system * Currently on room air * Stable and chronic (8) Essential hypertension: Code(s): I10 - Essential (primary) hypertension Status: Acute Assessment and Plan: * BP is 123/65 * Continue home atenolol, lisinopril, and HCTZ * Trend BP * Adjust therapy as indicated Time Spent With Patient Time with patient: Greater than 35 minutes Subjective Date/time seen: 12/16/22 09 Interval history: 12/16/22899 Patient is doing ok. He is sitting on the side of the bed. He stated that he is having some pain in his shoulder which he rated a 7/10. He did state that the pain medications were working. He currently stated that he feels stable for discharge at this time. He denies any chest pain, shortness of breath, nausea, vomiting, diarrhea, or constipation. 12/15/22 1370 Misael Graves is a 67 year old male? with a past me
--- NOTE | 2022-12-16 09:00 | PM.IMPN ---
Progress Note: A&P Assessment and Plan (1) Status post reverse total arthroplasty of right shoulder: Code(s): Z96.611 - Presence of right artificial shoulder joint Status: Acute Assessment and Plan: POD 1 Elective surgery performed on 12/15/22 Post op care per ortho Pain medications on board Antiemetics on board DVT per ortho Trend pain (2) Type 2 diabetes mellitus without complication, without long-term current use of insulin: Code(s): E11.9 - Type 2 diabetes mellitus without complications Status: Acute Assessment and Plan: Glucose 125 a1c from 09/16/23 is 5.9 Continue home Jardiance, Glargine U-300 40 units daily, 5 units of lispro at meal times, metformin 1000mg PO BID, Semaglutide 14mg PO daily on hold for now Accu checks AC/HS Hypoglycemia protocol Trend glucose Adjust therapy as indicated (3) Hyperlipidemia, unspecified: Qualifiers: Hyperlipidemia type: unspecified Qualified Code(s): E78.5 - Hyperlipidemia, unspecified Code(s): E78.5 - Hyperlipidemia, unspecified Status: Acute Assessment and Plan: Continue home atorvastatin Lipid panel outpatient if indicated (4) BPH (benign prostatic hyperplasia): Qualifiers: Lower urinary tract symptom presence: symptoms present Lower urinary tract symptom detail: nocturia Qualified Code(s): N40.1 - Benign prostatic hyperplasia with lower urinary tract symptoms; R35.1 - Nocturia Code(s): N40.0 - Benign prostatic hyperplasia without lower urinary tract symptoms Status: Acute Assessment and Plan: Continue home finasteride Trend urine output Bladder scan PRN if indicated (5) Psoriatic arthritis: Code(s): L40.50 - Arthropathic psoriasis, unspecified Status: Acute Assessment and Plan: Currently on Humira Continue post DC (6) CAD (coronary artery disease): Code(s): I25.10 - Atherosclerotic heart disease of [place] coronary artery without angina pectoris Status: Acute Assessment and Plan: Hx of stent placement Continue aspirin No complaints of chest pain Stable at this time (7) Asthma: Code(s): J45.909 - Unspecified asthma, uncomplicated Status: Acute Assessment and Plan: Continue Breo-Ellipta Trend respiratory system Currently on room air Stable and chronic (8) Essential hypertension: Code(s): I10 - Essential (primary) hypertension Status: Acute Assessment and Plan: BP is 123/65 Continue home atenolol, lisinopril, and HCTZ Trend BP Adjust therapy as indicated Time Spent With Patient Time with patient: Greater than 35 minutes Subjective Date/time seen: 12/16/22899 Interval history: 12/16/22899 Patient is doing ok. He is sitting on the side of the bed. He stated that he is having some pain in his shoulder which he rated a 7/10. He did state that the pain medications were working. He currently stated that he feels stable for discharge at this time. He denies any chest pain, shortness of breath, nausea, vomiting, diarrhea, or constipation. 12/15/22 1215 Misael Graves is a 67 year old male? with a past medical history of CAD, BPH, diabetes, hyperlipidemia, diabetes who presented for elective arthroplasty of right shoulder with Dr. Gabriel. patient said that he has been experiencing a lot of pain over the last few years.? Patient stated that it is just been unbearable and that he was going to have the surgery.? He has no other complaints including chest pain, shortness a breath, nausea, vomiting, diarrhea, constipation, sweats, fevers, chills, lightheadedness, dizziness, falls, abdominal pain.? Currently patient is experiencing no pain however he did state that he had a nerve block.? Educated the patient about ensuring good pain medicine [place]
[2022-12-16 09:44] LABS: Basophils Absolute Auto 0.1 K/mm3 (0.0-0.1); Basophils Percent Auto 0.5 % (0.2-1.2); Eosinophils Absolute Auto 0.1 K/mm3 (0-0.3); Eosinophils Percent Auto 1.1 % (0-4.4); Hematocrit 43.7 % (42.0-52.0); Hemoglobin 14.2 g/dL (14.0-18.0); Immature Granulocyte Absolute 0.04 K/mm3 (0.00-0.031); Immature Granulocyte Percent A 0.4 % (0-0.5); Lymphocytes Absolute Auto 1.97 K/mm3 (0.9-3.2); Lymphocytes Percent Auto 18.3 % (18.3-44.2); Mean Corpuscular HGB Conc 32.5 g/dl (32-36); Mean Corpuscular Hemoglobin 29.2 pg (26-34); Mean Corpuscular Volume 89.9 fl (80-100); Mean Platelet Volume 10.7 fl (7.4-10.4); Monocytes Absolute Auto 1.3 K/mm3 (0.1-0.6); Monocytes Percent Auto 12.3 % (2.6-8.5); Neutrophils Absolute Auto 7.3 K/mm3 (1.3-6.7); Neutrophils Percent Auto 67.4 % (45.5-73.1); Platelet Count Result 195 k/mm3 (150-375); Red Blood Count 4.86 M/mm3 (4.6-6.20); White Blood Count 10.8 K/mm3 (4.5-10.0)
[2022-12-16 09:54] LABS: Anion Gap 5 mmol/L (8-16); Blood Urea Nitrogen 26 mg/dL (9-20); Calcium 8.5 mg/dL (8.4-10.2); Carbon Dioxide 26 mmol/L (22-30); Chloride 102 mmol/L (98-107); Estimated CRCL calculation 62 ml/min; Estimated Glomerular Filt Rate > 60; Glucose 125 mg/dL (65-110); Potassium 4.1 mmol/L (3.4-5.0); Sodium 133 mmol/L (137-145)
--- NOTE | 2022-12-16 10:06 | WPDANESPN ---
Anes - Prog Note Post-Op Date/Time: 12/16/22 10:06 Cardiovascular status: normal Respiratory status: normal Airway patency: baseline Mental status: baseline Post-Op hydration status: normal Vital Signs: Last Vital Signs Temp 97.9 F 12/16/22 08:00 Pulse 57 L 12/16/22 08:47 Resp 18 12/16/22 08:00 BP 123/65 12/16/22 08:40 Pulse Ox 98 12/16/22 08:00 O2 Del Method Room Air 12/15/22 12:28 O2 Flow Rate 8 12/15/22 10:15 Pain Score (VAS): 0 I/O: Intake & Output 12/15/22 12/16/22 12/16/22 23:59 07:59 15:59 Intake Total 640 400 140 Balance 640 400 140 Laboratory Tests 12/16/22 09:30 12/16/22 09:30 12/15/22 12/15/22 12/15/22 10:18 13:09 17:31 WBC RBC Hgb Hct MCV MCH MCHC RDW Plt Count MPV Immature Gran % (Auto) Neut % (Auto) Lymph % (Auto) [place] % (Auto) Eos % (Auto) Baso % (Auto) Lymph # (Auto) [place] # (Auto) Eos # (Auto) Baso # (Auto) Abs Immat Gran (auto) Absolute Neuts (auto) Absolute Nucleated RBC Nucleated RBC % Sodium Potassium Chloride Carbon Dioxide Anion Gap BUN Creatinine Estim Creat Clear Calc Estimated GFR Glucose POC Capillary Glucose 115 H 142 H 174 H Calcium 12/15/22 12/16/22 12/16/22 19:35 06:46 09:30 WBC 10.8 H RBC 4.86 Hgb 14.2 Hct 43.7 MCV 89.9 MCH 29.2 MCHC 32.5 RDW 14.0 Plt Count 195 MPV 10.7 H Immature Gran % (Auto) 0.4 Neut % (Auto) 67.4 Lymph % (Auto) 18.3 [place] % (Auto) 12.3 H Eos % (Auto) 1.1 Baso % (Auto) 0.5 Lymph # (Auto) 1.97 [place] # (Auto) 1.3 H Eos # (Auto) 0.1 Baso # (Auto) 0.1 Abs Immat Gran (auto) 0.04 H Absolute Neuts (auto) 7.3 H Absolute Nucleated RBC 0.0 Nucleated RBC % 0.0 Sodium Potassium Chloride Carbon Dioxide Anion Gap BUN Creatinine Estim Creat Clear Calc Estimated GFR Glucose POC Capillary Glucose 170 H 138 H Calcium 12/16/22 09:30 WBC RBC Hgb Hct MCV MCH MCHC RDW Plt Count MPV Immature Gran % (Auto) Neut % (Auto) Lymph % (Auto) [place] % (Auto) Eos % (Auto) Baso % (Auto) Lymph # (Auto) [place] # (Auto) Eos # (Auto) Baso # (Auto) Abs Immat Gran (auto) Absolute Neuts (auto) Absolute Nucleated RBC Nucleated RBC % Sodium 133 L Potassium 4.1 Chloride 102 Carbon Dioxide 26 Anion Gap 5 L BUN 26 H D Creatinine 1.10 Estim Creat Clear Calc 62 Estimated GFR > 60 Glucose 125 H POC Capillary Glucose Calcium 8.5 Post-procedural complaints: none Patient Feedback: Patient satisfied with anesthetic care.verbalized good relief with block. states started to recede this am
== END 2022-12-16 10:33 | disposition home or self-care (01) ==
LOC: ANHSURGERY 10:12 → ANHSUROVER 11:22
PROVIDERS: Physician Assistant Surgical; PCP Physician Assistant; Visit Provider Orthopaedic Surgery
PROC: (CPT 23472; principal; 2022-12-15 07:30)
DX: S46.011A Strain of muscle(s) and tendon(s) of the rotator cuff of right shoulder, initial encounter (principal); M75.81 Other shoulder lesions, right shoulder; G89.18 Other acute postprocedural pain; M19.011 Primary osteoarthritis, right shoulder; E11.9 Type 2 diabetes mellitus without complications; W17.89XA Other fall from one level to another, initial encounter; E78.5 Hyperlipidemia, unspecified; I10 Essential (primary) hypertension; K21.9 Gastro-esophageal reflux disease without esophagitis; I25.10 Atherosclerotic heart disease of native coronary artery without angina pectoris; N40.0 Benign prostatic hyperplasia without lower urinary tract symptoms; J45.909 Unspecified asthma, uncomplicated; L40.50 Arthropathic psoriasis, unspecified; E55.9 Vitamin D deficiency, unspecified; Z79.82 Long term (current) use of aspirin; Z79.4 Long term (current) use of insulin; Z79.51 Long term (current) use of inhaled steroids; Z79.84 Long term (current) use of oral hypoglycemic drugs; Z95.5 Presence of coronary angioplasty implant and graft; E66.9 Obesity, unspecified; Z68.32 Body mass index [BMI] 32.0-32.9, adult
CPT/HCPCS: 23472; 64415; 36415; 73030; 80048; 82948; 85025; 86850; 86900; 86901; 97110; 97140; 97161; 97165; 97530; 97535; A4565; A9270; J0131; J0171; J0690; J1100; J1815; J1885; J2250; J2270; J2370; J2405; J2704; J2710; J2795; J3010; J3370; J7030; J7120

== ENCOUNTER 2024-09-20 03:25 | Day surgery (SDC) | payer MEDICARE, OTHER, SELFPAY ==
[2024-09-07 08:39] VITALS: BMI 32.1
[2024-09-20 07:21] VITALS: BMI 31.4
[2024-09-20 07:24] VITALS: BP 134/63; PULSE 62; RESP 18; TEMP 36.5; O2SAT 99
[2024-09-20] MEDS: LACTATED RINGERS 1,000 ML 150 ML IV CONT (07:35)
--- NOTE | 2024-09-20 07:53 | WPDANESEPPF ---
Anes - Initial Pre Proc Eval Procedure: Operation Date: 09/20/24 08:30 Proposed Procedures p Colonoscopy - Walter Virk MD Date/Time: 09/20/24 07:53 Surgeon: Walter Virk MD Pre Op Diagnosis: Personal history colon polyps Patient Data Age: 68 Gender: M Height: 1.7 m Weight: 91 kg Last Vital Signs Temp 36.5 C 09/20/24 07:24 Pulse 62 09/20/24 07:24 Resp 18 09/20/24 07:24 BP 134/63 09/20/24 07:24 Pulse Ox 99 09/20/24 07:24 O2 Del Method Room Air 09/20/24 07:24 Allergies Allergy/AdvReac Type Severity Reaction Status Date / Time cat dander Allergy Unknown ITCHING/WATERY Verified 09/20/24 07:18 EYES mold Allergy Unknown ITCHING/WATERY Verified 09/20/24 07:18 EYES, ASTHMA SYMPTOMS Home Medications Medication Instructions Recorded Confirmed Type atenolol 25 mg tablet 25 mg PO DAILY 10/11/19 09/20/24 History atorvastatin 40 mg tablet 40 mg PO DAILY 10/11/19 09/20/24 History aspirin 81 mg tablet,delayed 81 mg PO DAILY 10/19/19 09/20/24 History release (Adult Aspirin Regimen) fluticasone furoate 27.5 1 spray intranasal DAILY 10/19/19 09/20/24 History mcg/actuation nasal spray,suspension cholecalciferol (vitamin D3) 125 125 mcg PO DAILY 10/01/20 09/20/24 History mcg (5,000 unit) tablet (Vitamin D3) zinc 50 mg tablet 50 mg PO DAILY 10/01/20 09/20/24 History blood sugar diagnostic See Rx Instructions .Route 12/13/21 09/20/24 Rx .COMPLEX #400 ea allopurinol 300 mg tablet 300 mg PO DAILY 07/01/22 09/20/24 History finasteride 5 mg tablet 5 mg PO DAILY 07/01/22 09/20/24 History magnesium 200 mg tablet 400 mg PO DAILY 07/01/22 09/20/24 History Humira(CF) Pen 0.5 mg subcut [id number] 12/15/22 09/20/24 History Breo Ellipta 100 mcg-25 mcg/dose See Rx Instructions .Route 03/21/24 09/20/24 Rx powder for inhalation (fluticasone .COMPLEX #60 ea furoate-vilanterol) insulin glargine U-300 conc 300 40 unit (0.1333 mL) subcut DAILY 04/15/24 09/20/24 Rx unit/mL (3 mL) subcutaneous pen #12 mL (Toujeo Max U-300 SoloStar) tramadol 50 mg tablet 50 mg PO Q6H PRN pain #60 tabs 04/27/24 09/20/24 Rx lisinopril 20 1 tablet PO DAILY #90 tabs 05/07/24 09/20/24 Rx mg-hydrochlorothiazide 12.5 mg tablet pen needle, diabetic 31 gauge x #270 ea 05/07/24 09/20/24 Rx 5/16 (BD Ultra-Fine Short Pen Needle) metformin 1,000 mg tablet 1,000 mg PO BID #180 tabs 06/07/24 09/20/24 Rx pantoprazole 40 mg tablet,delayed 40 mg PO BID #180 tabs 06/08/24 09/20/24 Rx release insulin lispro-aabc 100 unit/mL 5 unit (0.05 mL) subcut TIDWMEAL 06/13/24 09/20/24 Rx subcutaneous pen (Lisa Mane #15 mL U-100 Insulin) semaglutide 14 mg tablet (Rybelsus) 14 mg PO DAILY #30 tabs 06/13/24 09/20/24 Rx empagliflozin 10 mg tablet 10 mg PO DAILY #90 tabs 07/18/24 09/20/24 Rx (Jardiance) blood sugar diagnostic (OneTouch #200 ea 08/08/24 09/20/24 Rx Ultra Test strips) tamsulosin 0.4 mg capsule 0.4 mg PO DAILY 09/07/24 09/20/24 History lancets 33 gauge (OneTouch Delica #200 ea 09/13/24 09/20/24 Rx Plus Lancet) tizanidine 4 mg tablet 4 mg PO QHS PRN muscle spasticity 09/19/24 09/20/24 Rx #90 tabs Patient hx anesthesia problems: none Family hx anesthesia problems: none Results Review: All pre-operative results and documents have been reviewed as part of the pre-operative evaluation. [facility] Past Medical History Medical History Asthma BPH (benign prostatic hyperplasia) CAD (coronary artery disease) Complete tear of right rotator cuff Essential hypertension GERD (gastroesophageal reflux disease) Hyperlipidemia, unspecified Lower back pain Mass of [place] Obesity (BMI 30.0-34.9) Orthopedic aftercare for joint replacement Osteoarthritis Psoriatic arthritis Rotator cuff arthropathy of right shoulder Type 2 diabetes mellitus without complication, without long-term current use
[2024-09-20 07:55] LABS: Glucose Point of Care 106 mg/dl (65-105)
--- NOTE | 2024-09-20 08:10 | PM.HPGS ---
History of Present Illness History of Present Illness Consent: Risks, benefits, and alternatives have been discussed and questions answered. Patient agrees to proceed with procedure. Chief complaint: Personal history colon polyps Narrative: Misael Graves is a 68 year old male with colon polyp 5 years ago Review of Systems Review of Systems: All systems reviewed & are unremarkable except as noted in HPI and below PMFSH Past Medical History Medical History (Updated 09/20/24 @ 08:10 by Walter Virk MD) Asthma BPH (benign prostatic hyperplasia) CAD (coronary artery disease) Colon polyp Complete tear of right rotator cuff Essential hypertension GERD (gastroesophageal reflux disease) Hyperlipidemia, unspecified Lower back pain [place] of [place] Obesity (BMI 30.0-34.9) Orthopedic aftercare for joint replacement Osteoarthritis Psoriatic arthritis Rotator cuff arthropathy of right shoulder Type 2 diabetes mellitus without complication, without long-term current use of insulin Uric acid kidney stone Vitamin D deficiency Surgical History Surgical History H/O cardiac catheterization H/O inguinal hernia repair History of cholecystectomy History of facial fracture repair 1977 History of heart artery stent History of reverse total replacement of right shoulder joint (~12/15/22) Status post club foot correction at x2 Family History Family History Father Hypertension, Onset Age: 80 Cerebrovascular accident, Onset Age: 80 Mother Family history of Alzheimer's disease, Onset Age: 92 Sibling Acute myocardial infarction Social History Social History Smoking status: Never smoker Second hand tobacco smoke exposure: No Additional smoking assessment comments: PT DENIES ALL FORMS OF TOBACCO USE Alcohol intake: never Substance use: never Substance use type: does not use Lack of Transportation: No Lack of Food: Never True Current Housing: I Have Housing Concerned About Future Housing: No Difficulty Paying Gas/Electric Bills: No Difficulty Paying for Meds: No Currently Unemployed: No Education: High School Diploma/GED Difficulty w/ Childcare or Family Care: No Living arrangements: with family Spiritual care concerns: No Meds Home Medications and Allergies Home Medications Medication Instructions Recorded Confirmed Type atenolol 25 mg tablet 25 mg PO DAILY 10/11/19 09/20/24 History atorvastatin 40 mg tablet 40 mg PO DAILY 10/11/19 09/20/24 History aspirin 81 mg tablet,delayed 81 mg PO DAILY 10/19/19 09/20/24 History release (Adult Aspirin Regimen) fluticasone furoate 27.5 1 spray intranasal DAILY 10/19/19 09/20/24 History mcg/actuation nasal spray,suspension cholecalciferol (vitamin D3) 125 125 mcg PO DAILY 10/01/20 09/20/24 History mcg (5,000 unit) tablet (Vitamin D3) zinc 50 mg tablet 50 mg PO DAILY 10/01/20 09/20/24 History blood sugar diagnostic See Rx Instructions .Route 12/13/21 09/20/24 Rx .COMPLEX #400 ea allopurinol 300 mg tablet 300 mg PO DAILY 07/01/22 09/20/24 History finasteride 5 mg tablet 5 mg PO DAILY 07/01/22 09/20/24 History magnesium 200 mg tablet 400 mg PO DAILY 07/01/22 09/20/24 History Humira(CF) Pen 0.5 mg subcut [id number] 12/15/22 09/20/24 History Breo Ellipta 100 mcg-25 mcg/dose See Rx Instructions .Route 03/21/24 09/20/24 Rx powder for inhalation (fluticasone .COMPLEX #60 ea furoate-vilanterol) insulin glargine U-300 conc 300 40 unit (0.1333 mL) subcut DAILY 04/15/24 09/20/24 Rx unit/mL (3 mL) subcutaneous pen #12 mL (Toujeo Max U-300 SoloStar) tramadol 50 mg tablet 50 mg PO Q6H PRN pain #60 tabs 04/27/24 09/20/24 Rx lisinopril 20 1 tablet PO DAILY #90 tabs 05/07/24 09/20/24 Rx mg-hydrochlorothiazide 12.5 mg tablet pe
[2024-09-20 08:24] VITALS: BP 111/63; PULSE 62; RESP 16; O2SAT 98
[2024-09-20 08:34] VITALS: BP 120/66; PULSE 58; RESP 18; O2SAT 98
[2024-09-20 08:44] VITALS: BP 121/78; PULSE 61; RESP 18; O2SAT 100
[2024-09-20 09:05] LABS: Glucose Point of Care 103 mg/dl (65-105)
== END 2024-09-20 08:56 | disposition home or self-care (01) ==
PROVIDERS: PCP Internal Medicine; Visit Provider Internal Medicine Gastroenterology
PROC: 0DJD8ZZ Inspection of Lower Intestinal Tract, Via Natural or Artificial Opening Endoscopic (ICD-10-PCS; CPT 45378; principal; 2024-09-20 08:30)
DX: Z12.11 Encounter for screening for malignant neoplasm of colon (principal); D12.3 Benign neoplasm of transverse colon; K64.8 Other hemorrhoids; K57.30 Diverticulosis of large intestine without perforation or abscess without bleeding; I10 Essential (primary) hypertension; K21.9 Gastro-esophageal reflux disease without esophagitis; E78.5 Hyperlipidemia, unspecified; E11.9 Type 2 diabetes mellitus without complications; E55.9 Vitamin D deficiency, unspecified; J45.909 Unspecified asthma, uncomplicated; N40.0 Benign prostatic hyperplasia without lower urinary tract symptoms; I25.10 Atherosclerotic heart disease of native coronary artery without angina pectoris; E66.9 Obesity, unspecified; Z68.31 Body mass index [BMI] 31.0-31.9, adult; Z79.82 Long term (current) use of aspirin; Z79.51 Long term (current) use of inhaled steroids; Z79.4 Long term (current) use of insulin; Z79.891 Long term (current) use of opiate analgesic; Z79.84 Long term (current) use of oral hypoglycemic drugs; Z98.890 Other specified postprocedural states; Z90.49 Acquired absence of other specified parts of digestive tract; Z95.5 Presence of coronary angioplasty implant and graft; Z87.442 Personal history of urinary calculi; Z82.49 Family history of ischemic heart disease and other diseases of the circulatory system
CPT/HCPCS: 45385; 82948; 88305; J2704; J7120

== ENCOUNTER 2025-08-15 15:04 | Emergency (ER) | payer MEDICARE, OTHER, SELFPAY ==
--- NOTE | 2025-08-15 15:12 | ED.SKABFB ---
HPI - Skin/Abscess/Foreign Bdy General Chief complaint: Skin/Abscess/Foreign Body Stated complaint: splinter in right foot Time Seen by Provider: 08/15/25 15:14 Source: patient, RN notes reviewed and old records reviewed Mode of arrival: ambulatory Limitations: no limitations History of Present Illness HPI narrative: 69-year-old male presents to the [facility] with a splinter in and the bottom of his right foot that occurred yesterday. Tetanus is more than 5 years. Patient is a diabetic. Related Data Home Medications ?Medication ?Instructions ?Recorded ?Confirmed ?Last Taken ?Type atenolol 25 mg tablet 25 mg PO DAILY 10/11/19 01/13/25 09/19/24 History atorvastatin 40 mg tablet 40 mg PO DAILY 10/11/19 01/13/25 09/19/24 History aspirin 81 mg tablet,delayed 81 mg PO DAILY 10/19/19 01/13/25 09/19/24 History release (Adult Aspirin Regimen) fluticasone furoate 27.5 1 spray intranasal DAILY 10/19/19 01/13/25 09/19/24 History mcg/actuation nasal spray,suspension cholecalciferol (vitamin D3) 125 125 mcg PO DAILY 10/01/20 01/13/25 09/19/24 History mcg (5,000 unit) tablet (Vitamin D3) zinc 50 mg tablet 50 mg PO DAILY 10/01/20 01/13/25 09/19/24 History allopurinol 300 mg tablet 300 mg PO DAILY 07/01/22 01/13/25 09/19/24 History Held on 12/15/22. Instructions: Resume on 12/29/22. finasteride 5 mg tablet 5 mg PO DAILY 07/01/22 01/13/25 09/19/24 History magnesium 200 mg tablet 400 mg PO DAILY 07/01/22 01/13/25 09/19/24 History Humira(CF) Pen 0.5 mg subcut [id number] 12/15/22 01/13/25 09/19/24 History tamsulosin 0.4 mg capsule 0.4 mg PO DAILY 09/07/24 01/13/25 09/19/24 History Allergies Allergy/AdvReac Type Severity Reaction Status Date / Time cat dander Allergy Unknown ITCHING/WATERY Verified 08/15/25 15:12 EYES mold Allergy Unknown ITCHING/WATERY Verified 08/15/25 15:12 EYES, ASTHMA SYMPTOMS Review of Systems Review of Systems: All systems reviewed & are unremarkable except as noted in HPI and below Constitutional: Constitutional: Reports no additional constitutional complaints Musculoskeletal: Musculoskeletal: Reports no additional musculoskeletal complaints Integumentary/Breasts: Skin/Breast: Reports as per HPI [facility] Past Medical History Medical History Colon polyp Orthopedic aftercare for joint replacement Psoriatic arthritis Rotator cuff arthropathy of right shoulder Obesity (BMI 30.0-34.9) Complete tear of right rotator cuff Lower back pain Uric acid kidney stone BPH (benign prostatic hyperplasia) CAD (coronary artery disease) Essential hypertension Hyperlipidemia, unspecified Type 2 diabetes mellitus without complication, without long-term current use of insulin Vitamin D deficiency Mass of palm Osteoarthritis Asthma GERD (gastroesophageal reflux disease) Surgical History Surgical History History of reverse total replacement of right shoulder joint (~12/15/22) History of heart artery stent History of facial fracture repair 1977 Status post club foot correction at x2 History of cholecystectomy H/O inguinal hernia repair H/O cardiac catheterization Family History Family History Father Hypertension, Onset Age: 80 Cerebrovascular accident, Onset Age: 80 Mother Family history of Alzheimer's disease, Onset Age: 92 Sibling Acute myocardial infarction Social History Social History Smoking status: Never smoker Second hand tobacco smoke exposure: Yes Additional smoking assessment comments: PT DENIES ALL FORMS OF TOBACCO USE Alcohol intake: never Substance use: never Substance use type: does not use Do You Feel Safe in your Home?: Yes Lack of Transportation: No Lack of Food: Never True Current Housing: I Have Housing Concerned About Future Housing: No Difficulty Paying Gas/Electric Bills: No Difficulty Paying for Meds: No Currently Unemployed: No Education: High School Diploma/GED Difficulty w/ Childcare or Family Care: No Living arrangements: with family Occupation/Education: retired 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 There is no relevant family history pertinent to the patient complaint. Exam Const: General: cooperative, healthy appearing, comfortable, no acute distress, well developed, alert and well nourished Nutritional Appearance: well nourished Orientation/consciousness: patient oriented x3 Limitations: no limitations HENMT: Head: normal to inspection Eyes: General: appearance normal, both eyes and all related structures Alignment and Position: alignment normal Neck: Neck: normal visual inspection, full ROM, no lymphadenopathy and no meningeal signs Chest: Chest palpation & inspection: normal inspection of the chest Resp: Effort & Inspection: normal respiratory effort and able to speak in complete sentences Cardio: Rate: regular rate Skin: General skin exam: normal color and no rashes or lesions noted Other: Right plantar aspect foot. 1.5 cm splinter his noted at the midfoot. Neuro: General: patient oriented x3, gait normal, moves all extremities and no meningeal signs Cognition (Neuro): normal cognition Speech: normal speech Gait exam (Neuro): Normal gait present Extrem: General: normal to inspection, full ROM, capillary refill normal and normal gait Psych: Appearance: grossly normal and well kempt Mental Status: mental status grossly normal Speech and movement: Normal speech and movement present and Clear speech present Affect: normal affect Attitude: cooperative Course Course Emergency Course: Cleaned area with Betadine, use tweezers, removed without issue. Level of Care: Express Care Visit Vital Signs Vital signs: Vital Signs Temperature 97.6 F 08/15/25 15:13 Pulse Rate 64 08/15/25 15:13 Respiratory Rate 18 08/15/25 15:13 Blood Pressure 102/59 L 08/15/25 15:13 Pulse Oximetry 97 08/15/25 15:13 Oxygen Delivery Room Air 08/15/25 15:13 Temperature 97.6 F 08/15/25 15:13 Pulse Rate 64 08/15/25 15:13 Respiratory Rate 18 08/15/25 15:13 Blood Pressure 102/59 L 08/15/25 15:13 Pulse Oximetry 97 08/15/25 15:13 Oxygen Delivery Room Air 08/15/25 15:13 Reviewed MDM - Skin/Abscess/Foreign Bdy MDM Narrative Medical decision making narrative: Patient sitting in exam room. Patient is nontoxic, vitals stable. Patient presents with a splinter in his foot. Able to cleaned, remove. Covering with Keflex 4 times a day due to patient's past medical history. Patient walked out and a normal gait. Discharge instructions reviewed with patient, as well as provided in writing per nursing staff. The instructions also include specific and strict return/GO TO THE ER as well as f/u information. All questions have been answered, and the patient deny any further questions with discharge and discharge plan. Some parts of this dictation were generated by voice recognition software and may contain typographical and/or grammatical inaccuracies. Differential Diagnosis Differential diagnosis: Likely abscess of skin or subcutaneous tissue, cellulitis, contact dermatitis and other Critical Care Time Critical Care Time Critical Care Time: No Discharge Plan Discharge Clinical Impression: Splinter of right foot without infection, Vaccine for diphtheria-tetanus Patient Disposition: Home Condition: Stable Instructions: Antibiotic Form, Foot Care for People with Diabetes (DC) Additional Instructions: Keep area clean and dry. Wash with warm soapy water, pat dry. Make sure you dry your foot well. Check your sugars and make sure they are well controlled Follow-up with podiatry Follow-up with primary care provider For new or worsening symptoms go directly to the emergency room Patient Language: Irish Prescriptions: New cephalexin 500 mg capsule 500 mg PO QID 7 Days Qty: 28 0RF No Action aspirin [Adult Aspirin Regimen] 81 mg tablet,delayed release (DR/EC) 81 mg PO DAILY Patient Comments: HS fluticasone furoate 27.5 mcg/actuation spray,suspension 1 spray NASAL DAILY allopurinol 300 mg tablet 300 mg PO DAILY finasteride 5 mg tablet 5 mg PO DAILY magnesium 200 mg tablet 400 mg PO DAILY atorvastatin 40 mg Tablet 40 mg PO DAILY atenolol 25 mg Tablet 25 mg PO DAILY zinc 50 mg Tablet 50 mg PO DAILY cholecalciferol (vitamin D3) [Vitamin D3] 125 mcg (5,000 unit) Tablet 125 mcg PO DAILY Humira(CF) Pen 0.5 mg subcut [id number] tamsulosin 0.4 mg capsule 0.4 mg PO DAILY blood sugar diagnostic Strip See Rx Instructions .ROUTE .COMPLEX Qty: 400 3RF Dose Instruction: USE TO TEST BLOOD SUGAR DAILY Rx Instructions: USE TO TEST BLOOD SUGAR DAILY 4x daily (DME) pen needle, diabetic [BD Ultra-Fine Short Pen Needle] 31 gauge x 5/16 needle See Rx Instructions .ROUTE .COMPLEX Qty: 270 4RF Dose Instruction: USE WITH INSULIN PEN TO INJECT 3 TO 4 TIMES DAILY Rx Instructions: USE WITH INSULIN PEN TO INJECT 3 TO 4 TIMES DAILY metformin 1,000 mg tablet 1,000 mg PO BID Qty: 180 2RF pantoprazole 40 mg tablet,delayed release (DR/EC) 40 mg PO BID Qty: 180 2RF Rybelsus 14 mg tablet 14 mg PO DAILY Qty: 90 3RF insulin glargine U-300 conc [Toujeo Max U-300 SoloStar] 300 unit/mL (3 mL) insulin pen 40 unit subcut DAILY Qty: 12 4RF Jardiance 10 mg tablet 10 mg PO DAILY Qty: 90 3RF tramadol 50 mg tablet 50 mg PO Q6H PRN (Reason: pain) Qty: 60 0RF tizanidine 4 mg tablet 4 mg PO QHS PRN (Reason: muscle spasticity) Qty: 90 0RF (DME) lancets [OneTouch Delica Plus Lancet] 33 gauge misc See Rx Instructions .ROUTE .COMPLEX Qty: 200 0RF Dose Instruction: USE DIRECTED TO CHECK BLOOD SUGAR THREE TIMES DAILY Rx Instructions: USE DIRECTED TO CHECK BLOOD SUGAR THREE TIMES DAILY fluticasone furoate-vilanterol [Breo Ellipta] 100-25 mcg/dose blister with device See Rx Instructions .ROUTE .COMPLEX Qty: 60 5RF Dose Instruction: INHALE 1 PUFF BY MOUTH BY MOUTH ONCE DAILY Rx Instructions: INHALE 1 PUFF BY MOUTH BY MOUTH ONCE DAILY (DME) OneTouch Ultra Test Strip See Rx Instructions .Route Qty: 200 3RF Rx Instructions: check blood sugar 3 times daily Lyumjev KwikPen U-100 Insulin 100 unit/mL insulin pen See Rx Instructions .ROUTE .COMPLEX Qty: 15 2RF Dose Instruction: INJECT 5 UNITS SUBCUTANEOUS THREE TIMES DAILY WITH MEALS Rx Instructions: INJECT 5 UNITS SUBCUTANEOUS THREE TIMES DAILY WITH MEALS lisinopril-hydrochlorothiazide 20-12.5 mg tablet See Rx Instructions .ROUTE .COMPLEX Qty: 90 0RF Dose Instruction: TAKE 1 TABLET DAILY Rx Instructions: TAKE 1 TABLET DAILY Follow-up/Referrals: Daljit Michaud Jr., MARIAHM [Physician, Podiatry] Guillermo Cummings DO [Primary Care Provider, Internal Medicine] - 1 Week Evans Larsen DPM [Physician, Podiatry] Time of Disposition: 15:29
[2025-08-15 15:13] VITALS: BP 102/59; PULSE 64; RESP 18; TEMP 36.4; O2SAT 97
[2025-08-15] MEDS: TETANUS/DIPHTHERIA TOXOIDS ADSORB 0.5 ML SYRINGE (*BKC) IM (15:26)
== END 2025-08-15 15:34 | disposition home or self-care (01) ==
PROVIDERS: Emergency Provider Nurse Practitioner; PCP Internal Medicine
DX: S90.851A Superficial foreign body, right foot, initial encounter (principal); W45.8XXA Other foreign body or object entering through skin, initial encounter; Z23 Encounter for immunization; E11.9 Type 2 diabetes mellitus without complications; Z79.4 Long term (current) use of insulin; Z79.84 Long term (current) use of oral hypoglycemic drugs; I10 Essential (primary) hypertension; I25.10 Atherosclerotic heart disease of native coronary artery without angina pectoris; E78.5 Hyperlipidemia, unspecified; K21.9 Gastro-esophageal reflux disease without esophagitis; M19.90 Unspecified osteoarthritis, unspecified site; E55.9 Vitamin D deficiency, unspecified; N40.0 Benign prostatic hyperplasia without lower urinary tract symptoms; E66.9 Obesity, unspecified; Z68.33 Body mass index [BMI] 33.0-33.9, adult; L40.50 Arthropathic psoriasis, unspecified; Z95.5 Presence of coronary angioplasty implant and graft; Z79.82 Long term (current) use of aspirin
CPT/HCPCS: 90471; 90714; 99213; G0463